=== PATIENT | female | born 1950 | race Caucasian/White ===

== ENCOUNTER 2016-10-29 15:16 | Emergency (ER) | payer OTHER, MEDICARE ==
[~2016-10-29] VITALS: Ht 175.3 cm; Wt 118.1 kg
[~2016-10-29 15:16] MED LIST: ATEN50 PO; DIAZ10TA PO; ECON0.05 EX; FERR324T4 PO; LEVO125T48 PO; LORA1TAB PO; LORT5TAB PO; MEDR2.5T19 PO; METHTAB PO; MEVA40TA PO; MIRA0.5T PO; PRED10PA PO; PREG75 PO; PROT40TA PO; SERT-132 OR; TAB-TAB PO; TRIA.1%T TOP; TUMS500C PO; VITA100018 PO; ZOLP10TA3 PO; [UNRECOGNIZED DRUG - CODE] TOP
[2016-10-29 15:28] VITALS: BP 185/93; PULSE 92; RESP 18; TEMP 98.9; O2SAT 96
--- NOTE | 2016-10-29 15:58 | PD ---
HPI Chief Complaint: Fall Time Seen by Provider: 15:42 Travel History International Travel<30 days: No Contact w/Intl Traveler<30days: No Traveled to known affect area: No History of Present Illness HPI 66-year-old female presents to the emergency room for evaluation of left shoulder pain and headache after falling 2.5 hours prior to arrival. Patient went to sit down but the chair was not behind her and she fell into an island striking the back of her head. She denies loss of consciousness, nausea, vomiting. She denies neck pain. She is not on blood thinners. States her head pain is severe. She took prescribed Neurontin and Lortab without significant relief in symptoms. Shoulder pain is localized to the posterior aspect without radiation. Worse with palpation. She denies paresthesias. PFSH Past Medical History Cancer: No Cardiovascular Problems: No Diabetes: No Diminished Hearing: No Hypertension: Yes Respiratory: No Thyroid Disease: Yes (HYPOTHYROID) ?: Not : 4 Para: 4 Past Surgical History Other Surgery: No Social History Alcohol Use: Yes (occasional) Tobacco Use: No Substance Use: No Allergies-Medications (Allergen,Severity, Reaction): Coded Allergies: No Known Allergies (Verified , 11/03/11) Reported Meds & Prescriptions Reported Meds & Active Scripts Active Reported Zoloft (Sertraline HCl) 100 Mg Tab 100 Mg PO DAILY Protonix (Pantoprazole Sodium) 40 Mg Tab 40 Mg PO BID Zanaflex (Tizanidine HCl) 4 Mg Tab 4 Mg PO HS Allopurinol 100 Mg Tab 100 Mg PO DAILY Mirapex (Pramipexole Dihydrochloride) 1 Mg Tab 1 Mg PO HS Ambien (Zolpidem Tartrate) 10 Mg Tab 10 Mg PO HS PRN Lisinopril 40 Mg Tab 80 Mg PO DAILY Atenolol 50 Mg Tab 50 Mg PO BID Metformin ER (Metformin HCl) 500 Mg Oli 500 Mg PO BID With evening meal Review of Systems Except as stated in HPI: all other systems reviewed are Neg Physical Exam Narrative GENERAL: Well-nourished, obese female in no acute distress. Afebrile. Ambulatory. SKIN: Focused skin assessment warm/dry. No erythema or ecchymosis. HEAD: Normocephalic. EYES: No scleral icterus. No injection or drainage. EARS: Bilateral ear canals are occluded with cerumen. NECK: Supple, trachea midline. No JVD or lymphadenopathy. CARDIOVASCULAR: Regular rate and rhythm without murmurs, gallops, or rubs. RESPIRATORY: Breath sounds equal bilaterally. No accessory muscle use. NEUROLOGICAL: Awake and alert. Cranial nerves II through XII intact. Motor and sensory grossly within normal limits. Five out of 5 muscle strength in all muscle groups. Normal speech. Data Data Last Documented VS Vital Signs Date Time Temp Pulse Resp B/P (MAP) Pulse Ox O2 Delivery O2 Flow Rate FiO2 10/29/16 16:56 166/80 (108) 10/29/16 15:28 98.9 92 18 96 Room Air Orders Orders Ct Brain W/O Iv Contrast(Rout) (10/29/16 ) [facility] Medical Decision Making Medical Screen Exam Complete: Yes Emergency Medical Condition: Yes Medical Record Reviewed: Yes Differential Diagnosis Cephalgia, CVA, ICH, head injury, contusion Narrative Course 66-year-old female presents to the emergency room for evaluation of headache after hitting her head just prior to arrival. Patient fell from standing, thinking there was a chair behind her to sit down on, she struck the back of her head against and a kitchen island. She denies loss of consciousness, nausea , vomiting, and is not on blood thinners. She has a severe headache and is crying in pain. No focal neurological deficits. Bilateral ear canals are occluded with cerumen. No hilton sign or raccoon eyes. CT of the brain is negative for acute abnormality. She also has posterior left shoulder/thoracic back pain from where she struck it against a island. It is tender to palpation. No edema, ecchymosis, or erythema. Left upper extremity is unaffected. No indication for imaging. Patient was reassured and told to follow-up with the primary care physician or return for worsening symptoms. She understands and agrees to plan. Diagnosis Primary Impression: Closed head injury Qualified Codes: S09.90XA - Unspecified injury of head, initial encounter Referrals: Primary Care Physician Additional Instructions: Rest and drink plenty of fluids. Take ibuprofen with food as directed, as needed for pain. Apply ice to the affected area for 20 minutes at a time, as needed for pain and swelling. Follow-up with a primary care physician. Return to the emergency room for worsening symptoms. Disposition: 01 DISCHARGE HOME Condition: Stable Vicky Crawford Oct 29, 2016 15:58
[2016-10-29] MEDS ORDERED: PROT40TA PO (16:01)
[2016-10-29] MEDS ORDERED: TIZA4 PO (16:01)
[2016-10-29] MEDS ORDERED: METF500T4 PO (16:01)
[2016-10-29] MEDS ORDERED: PRAM1 PO (16:01)
[2016-10-29] MEDS ORDERED: ATEN50TA PO (16:01)
[2016-10-29] MEDS ORDERED: LISI40TA PO (16:01)
[2016-10-29] MEDS ORDERED: ZOLO100T PO (16:01)
[2016-10-29] MEDS ORDERED: AMBI10TA PO (16:01)
[2016-10-29] MEDS ORDERED: ALLO100T PO (16:01)
[2016-10-29 16:56] VITALS: BP 166/80
--- NOTE | 2016-10-29 17:06 | RADRPT ---
EXAM DATE/TIME: 10/29/2016 16:50 [facility] COMPARISON: No previous studies available for comparison. INDICATIONS : Trauma, fall. Cephalgia. RADIATION DOSE: 64.49 CTDIvol (mGy) MEDICAL HISTORY : Hypertension. Diabetes mellitus type 2. SURGICAL HISTORY : None. ENCOUNTER: Initial ACUITY: 1 day PAIN SCALE: 5/10 LOCATION: cranial TECHNIQUE: Multiple contiguous axial images were obtained of the head. Using automated exposure control and adj ustment of the mA and/or kV according to patient size, radiation dose was kept as low as reasonably a chievable to obtain optimal diagnostic quality images. DICOM format image data is available electro nically for review and comparison. FINDINGS: CEREBRUM: The ventricles are normal for age. No evidence of midline shift, mass lesion, hemorrhage or acute in farction. No extra-axial fluid collections are seen. POSTERIOR FOSSA: The cerebellum and brainstem are intact. The 4th ventricle is midline. The cerebellopontine angle i s unremarkable. EXTRACRANIAL: The visualized portion of the orbits is intact. SKULL: The calvaria is intact. No evidence of skull fracture. CONCLUSION: 1. No acute intracranial abnormality is identified. Jose Connors MD on October 29, 2016 at 17:01 Board Certified Radiologist. This report was verified electronically.
[2016-10-29 17:20] VITALS: BP 152/79
== END 2016-10-29 17:30 | disposition home or self-care (01) ==
LOC: PHEFT 15:16
DX: S09.90XA Unspecified injury of head, initial encounter (principal); M25.512 Pain in left shoulder; I10 Essential (primary) hypertension; E03.9 Hypothyroidism, unspecified; W18.39XA Other fall on same level, initial encounter
CPT/HCPCS: 70450; 99284

== ENCOUNTER 2017-09-04 20:44 | Inpatient (IN) ==
--- NOTE | 2017-09-04 20:56 | ED ---
HPI General Chief Complaint: Stroke Alert Stated Complaint: Medical Time Seen by Provider: 09/04/17 20:49 Source: EMS Mode of arrival: ambulatory History of Present Illness HPI Narrative: The patient ana in by EMS because of convulsions and decreased responsiveness to commands. onset of symptoms of 25 min prior to arrival. The symptoms are still present . There is no headache. The patient did not have similar episodes in the past. As per EMS report the patient was seen earlier at another facility for kidney stones had Rocephin IV and morphine and was subsequently discharged. She was at dinner with her when she started having tremors and convulsions not responding to questions. Paramedics report that she had a brief transient episode that she responded to them that she is not hurting anywhere however she still has shaking of the upper extremities facial tic and transient responses to questions. Onset (ago): minute(s) (25 ago) Timing confirmed by: spouse Location: other (Upper extremities and facial muscles) History of same: No Severity: severe Relieving factors: none Context: sudden onset On Anticoagulants: No Related Data Home Medications Medication Instructions Recorded Confirmed carvedilol [Coreg] mg PO 09/04/17 gabapentin 09/04/17 hydrocodone-acetaminophen tab PO Q4-6H PRN 09/04/17 sertraline [Zoloft] mg PO 09/04/17 Allergies Allergy/AdvReac Type Severity Reaction Status Date / Time promethazine [From Phenergan] Allergy Anaphylaxis Verified 09/04/17 20:52 Review of Systems ROS Unobtainable unobtainable due to mental condition (denies headache) [facility] Medical History Medical History Diabetes (Acute) Fibromyalgia (Acute) HTN (hypertension) (Acute) Kidney stone (Acute) Patient is Shinto (Acute) Refusal of blood transfusions as patient is Shinto (Acute) Surgical History Surgical History H/O cervical spine surgery (Acute) History of back surgery (Acute) History of lithotripsy (Acute) Family History Family History Father Stroke Mother Stroke Social History Social History Substance History: No History of Abuse Smoking Status: Former smoker Tobacco Type: Cigarettes Years Smoked: 12 Smoking End Date: when she was 29 How Often Do You Have a Drink Containing Alcohol: Monthly or less Recent Travel in [facility] within the Last 8 Weeks: No Recent Out of Country Travel within the Last 8 Weeks: No Exam Narrative Exam Narrative: GENERAL: Patient in distress not following commands with tremors of upper extremities and facial muscles. SKIN: Focused skin assessment warm/dry. HEAD: Atraumatic. Normocephalic. EYES: Pupils equal and round. No scleral icterus. No injection or drainage. ENT: No nasal bleeding or discharge. Mucous membranes pink and moist. NECK: Trachea midline. No JVD. CARDIOVASCULAR: Regular rate and rhythm. No murmur appreciated. RESPIRATORY: No accessory muscle use. Clear to auscultation. Breath sounds equal bilaterally. GASTROINTESTINAL: Abdomen soft, non-tender, nondistended. Hepatic and splenic margins not palpable. MUSCULOSKELETAL: No obvious deformities. No clubbing. No cyanosis. No edema. PSYCHIATRIC: Appropriate mood and affect; insight and judgment normal. Neuro General: awake Cranial Nerves: PERRL and EOM intact bilaterally Speech: expressive aphasia Motor: strength 5/5 throughout, no pronator drift, tremor (Upper extremities facial muscles LT MORE THAN RT), no pronator drift noted and strength normal Sensory Exam: other (withdrawls to painfull stimuli) DTR's: Rt Brachioradialis: 4+, Lt Brachioradialis: 4+, Rt Patellar: 4+ and Lt Patellar: 4+ Plantar Reflexes: Downgoing: bilateral Pupils: Normal pupillary reactivity/response: bilateral Other: Unable to obtain cranial nerve evaluation. Patient does not follow commands. Appears that she might have an expressive aphasia at times however she does respond to questions. Moves all extremities upper and lower without any signs of deficits. Bilateral lower extremities with drift of 8 seconds. However I feel like this mostly because the patient does not follow commands. Does not appear to have any focal deficits at this time. Course Reevaluation(s) Reevaluation #3: at bedside provided us with CT reading from previous facility. Apparently patient has an obstructing ureteral calculus approximately 13 mm on the left UPJ with mild left hydronephrosis. This is official reading from previous facility on a CT abdomen and pelvis without contrast that was obtained on the at [facility] Time: 22:45 Consultations Consultation #1: Patient presented to neurology on-call Dr. Sanders. Based on the fact that the patient appears to be having focal seizures with tremors and not specific symptoms of CVA with focal deficits she is not a TPA candidate. We are awaiting results. Current recommendation is admit to the ICU. Time: 21:00 Initial Documented Vital Signs Temperature 103.4 F H 09/04/17 20:45 Pulse Rate 132 H 09/04/17 20:45 Respiratory Rate 20 09/04/17 20:45 Blood Pressure 156/92 H 09/04/17 20:45 Pulse Oximetry 98 09/04/17 20:45 Last Documented Vital Signs Temperature 99.7 F H 09/05/17 03:56 Pulse Rate 103 H 09/05/17 07:40 Respiratory Rate 18 09/05/17 07:40 Blood Pressure 157/71 H 09/05/17 07:40 Pulse Oximetry 96 09/05/17 07:40 Quality Measure Queries Stroke Last date observed well: 09/04/17 Last time observed well: 19:30 Symptom Onset Unknown: Yes Comment Thrombolytic Contraindications: Pt appears to be having focal seizure, Medical Decision Making MDM Narrative Medical decision making narrative: Patient initially came as a stroke alert however imaging was unremarkable due to the fact the child altered mental status and met sepsis criteria with temperature lactic acidosis and white count we cover her prophylactically for possible meningitis however after her arrived it appears that she had an infected kidney stone that was scheduled to be removed this coming week and the patient was seen and evaluated at another facility earlier however she became septic within a few hours and resolving to toxic metabolic encephalopathy on arrival here. She was not a candidate for TPA presentation was discussed with neurology and she was admitted to the surgical ICU for urologic consultation and removal of the stone possible nephrostomy tubes. ICU attending was informed of the patient 90. Patient improved markedly after she received fluids with resolution of her neurologic deficits. Unable to obtain NIH score in arrival patient was not following commands. Lab Data Lab results reviewed: Yes I reviewed the patient's lab results. Result diagrams: 09/04/17 20:50 09/05/17 07:05 Lab Results 09/04/17 09/04/17 09/04/17 Range/Units 20:50 20:50 20:50 WBC (4.0-11.0) th/mm3 RBC (4.00-5.30) mil/mm3 Hgb (11.6-15.3) gm/dL POC Hgb (Calc) 10.9 L (11.6-15.3) g/dL Hct (35.0-46.0) % POC Hct 32.0 L (35-46.0) % MCV (80.0-100.0) fL MCH (27.0-34.0) pg MCHC (32.0-36.0) % RDW (11.6-17.2) % Plt Count (150-450) th/mm3 MPV (7.0-11.0) fL Neut % (Auto) (16.0-70.0) % Lymph % (Auto) (9.0-44.0) % [place] % (Auto) (0.0-8.0) % Eos % (Auto) (0.0-4.0) % Baso % (Auto) (0.0-2.0) % Neut # (Auto) (1.8-7.7) th/mm3 Lymph # (Auto) (1.0-4.8) th/mm3 [place] # (Auto) (0.0-0.9) th/mm3 Eos # (Auto) (0.0-0.4) th/mm3 Baso # (Auto) (0.0-0.2) th/mm3 WBC Differential Differential Comment PT 11.0 (9.8-11.6) sec INR 1.1 Ratio APTT 21.7 L (24.3-30.1) sec POC Sodium 142 (137-144) mmol/L Sodium 143 (136-145) meq/L POC Potassium 4.3 (3.6-5.0) mmol/L Potassium 4.2 (3.5-5.1) meq/L POC Chloride 106 (102-111) mmol/L Chloride 109 H (98-107) meq/L Carbon Dioxide 23.3 (21.0-32.0) meq/L Anion Gap 11 (5-15) meq/L POC BUN 20 (5-21) mg/dL BUN 19 H (7-18) mg/dL Creatinine 1.19 H (0.50-1.00) mg/dL POC Creatinine 1.0 (0.6-1.3) mg/dL Estimated GFR 45 L (>89) mL/min POC Glucose 134 H (68-110) mg/dL Random Glucose 132 H (74-106) mg/dL Lactic Acid (0.4-2.0) mmol/L Calcium 8.8 (8.5-10.1) mg/dL Total Creatine Kinase 67 (26-192) U/L Troponin I Less than 0.02 L (0.02-0.05) ng/mL Urine Color (Yellw/Straw) Urine Clarity (Clear) Urine pH (5.0-8.5) Ur Specific [place] (1.002-1.035) Urine Protein (Neg-Trace) mg/dL Urine Glucose (UA) (Negative) mg/dL Urine Ketones (Negative) mg/dL Urine Occult Blood (Negative) Urine Nitrate (Negative) Urine Bilirubin (Negative) Urine Urobilinogen (Less than 2) mg/dL Ur Leukocyte Esterase (Negative) Urine RBC (0-3) /hpf Urine WBC (0-5) /hpf Urine WBC Clumps (None) Ur Squamous Epith Cells (0-5) /hpf Urine Bacteria (None) /hpf Hyaline Casts (0-3) /lpf Micro UA Comment Urine Culture Comments Blood Type Blood Type Recheck Antibody Screen 09/04/17 09/04/17 09/04/17 Range/Units 20:50 20:54 21:55 WBC 11.9 H (4.0-11.0) th/mm3 RBC 3.91 L (4.00-5.30) mil/mm3 Hgb 11.3 L (11.6-15.3) gm/dL POC Hgb (Calc) (11.6-15.3) g/dL Hct 34.1 L (35.0-46.0) % POC Hct (35-46.0) % MCV 87.2 (80.0-100.0) fL MCH 28.9 (27.0-34.0) pg MCHC 33.1 (32.0-36.0) % RDW 15.6 (11.6-17.2) % Plt Count 229 (150-450) th/mm3 MPV 6.7 L (7.0-11.0) fL Neut % (Auto) 85.9 H (16.0-70.0) % Lymph % (Auto) 6.3 L (9.0-44.0) % [place] % (Auto) 6.8 (0.0-8.0) % Eos % (Auto) 0.6 (0.0-4.0) % Baso % (Auto) 0.4 (0.0-2.0) % Neut # (Auto) 10.2 H (1.8-7.7) th/mm3 Lymph # (Auto) 0.7 L (1.0-4.8) th/mm3 [place] # (Auto) 0.8 (0.0-0.9) th/mm3 Eos # (Auto) 0.1 (0.0-0.4) th/mm3 Baso # (Auto) 0.0 (0.0-0.2) th/mm3 WBC Differential . Differential Comment Auto diff final PT (9.8-11.6) sec INR Ratio APTT (24.3-30.1) sec POC Sodium (137-144) mmol/L Sodium (136-145) meq/L POC Potassium (3.6-5.0) mmol/L Potassium (3.5-5.1) meq/L POC Chloride (102-111) mmol/L Chloride (98-107) meq/L Carbon Dioxide (21.0-32.0) meq/L Anion Gap (5-15) meq/L POC BUN (5-21) mg/dL BUN (7-18) mg/dL Creatinine (0.50-1.00) mg/dL POC Creatinine (0.6-1.3) mg/dL Estimated GFR (>89) mL/min POC Glucose 146 H (68-110) mg/dL Random Glucose (74-106) mg/dL Lactic Acid (0.4-2.0) mmol/L Calcium (8.5-10.1) mg/dL Total Creatine Kinase (26-192) U/L Troponin I (0.02-0.05) ng/mL Urine Color Yellow (Yellw/Straw) Urine Clarity Cloudy H (Clear) Urine pH 5.0 (5.0-8.5) Ur Specific [place] 1.048 H (1.002-1.035) Urine Protein 100 H (Neg-Trace) mg/dL Urine Glucose (UA) Negative (Negative) mg/dL Urine Ketones Negative (Negative) mg/dL Urine Occult Blood Large H (Negative) Urine Nitrate Negative (Negative) Urine Bilirubin Negative (Negative) Urine Urobilinogen Less than 2 (Less than 2) mg/dL Ur Leukocyte Esterase Large H (Negative) Urine RBC 21 H (0-3) /hpf Urine WBC 104 H (0-5) /hpf Urine WBC Clumps Occasional H (None) Ur Squamous Epith Cells 1 (0-5) /hpf Urine Bacteria Occasional H (None) /hpf Hyaline Casts 2 (0-3) /lpf Micro UA Comment Cath-culture ind Urine Culture Comments Cath-cult indicated Blood Type Blood Type Recheck Antibody Screen 09/04/17 09/05/17 09/05/17 Range/Units 21:55 03:10 07:05 WBC (4.0-11.0) th/mm3 RBC (4.00-5.30) mil/mm3 Hgb (11.6-15.3) gm/dL POC Hgb (Calc) (11.6-15.3) g/dL Hct (35.0-46.0) % POC Hct (35-46.0) % MCV (80.0-100.0) fL MCH (27.0-34.0) pg MCHC (32.0-36.0) % RDW (11.6-17.2) % Plt Count (150-450) th/mm3 MPV (7.0-11.0) fL Neut % (Auto) (16.0-70.0) % Lymph % (Auto) (9.0-44.0) % [place] % (Auto) (0.0-8.0) % Eos % (Auto) (0.0-4.0) % Baso % (Auto) (0.0-2.0) % Neut # (Auto) (1.8-7.7) th/mm3 Lymph # (Auto) (1.0-4.8) th/mm3 [place] # (Auto) (0.0-0.9) th/mm3 Eos # (Auto) (0.0-0.4) th/mm3 Baso # (Auto) (0.0-0.2) th/mm3 WBC Differential Differential Comment PT (9.8-11.6) sec INR Ratio APTT (24.3-30.1) sec POC Sodium (137-144) mmol/L Sodium 144 (136-145) meq/L POC Potassium (3.6-5.0) mmol/L Potassium 4.2 (3.5-5.1) meq/L POC Chloride (102-111) mmol/L Chloride 111 H (98-107) meq/L Carbon Dioxide 25.5 (21.0-32.0) meq/L Anion Gap 8 (5-15) meq/L POC BUN (5-21) mg/dL BUN 18 (7-18) mg/dL Creatinine 0.95 (0.50-1.00) mg/dL POC Creatinine (0.6-1.3) mg/dL Estimated GFR 58 L (>89) mL/min POC Glucose (68-110) mg/dL Random Glucose 101 (74-106) mg/dL Lactic Acid 1.9 (0.4-2.0) mmol/L Calcium 8.8 (8.5-10.1) mg/dL Total Creatine Kinase (26-192) U/L Troponin I (0.02-0.05) ng/mL Urine Color (Yellw/Straw) Urine Clarity (Clear) Urine pH (5.0-8.5) Ur Specific [place] (1.002-1.035) Urine Protein (Neg-Trace) mg/dL Urine Glucose (UA) (Negative) mg/dL Urine Ketones (Negative) mg/dL Urine Occult Blood (Negative) Urine Nitrate (Negative) Urine Bilirubin (Negative) Urine Urobilinogen (Less than 2) mg/dL Ur Leukocyte Esterase (Negative) Urine RBC (0-3) /hpf Urine WBC (0-5) /hpf Urine WBC Clumps (None) Ur Squamous Epith Cells (0-5) /hpf Urine Bacteria (None) /hpf Hyaline Casts (0-3) /lpf Micro UA Comment Urine Culture Comments Blood Type O Positive Blood Type Recheck Required Antibody Screen Negative 09/05/17 Range/Units 07:05 WBC (4.0-11.0) th/mm3 RBC (4.00-5.30) mil/mm3 Hgb (11.6-15.3) gm/dL POC Hgb (Calc) (11.6-15.3) g/dL Hct (35.0-46.0) % POC Hct (35-46.0) % MCV (80.0-100.0) fL MCH (27.0-34.0) pg MCHC (32.0-36.0) % RDW (11.6-17.2) % Plt Count (150-450) th/mm3 MPV (7.0-11.0) fL Neut % (Auto) (16.0-70.0) % Lymph % (Auto) (9.0-44.0) % [place] % (Auto) (0.0-8.0) % Eos % (Auto) (0.0-4.0) % Baso % (Auto) (0.0-2.0) % Neut # (Auto) (1.8-7.7) th/mm3 Lymph # (Auto) (1.0-4.8) th/mm3 [place] # (Auto) (0.0-0.9) th/mm3 Eos # (Auto) (0.0-0.4) th/mm3 Baso # (Auto) (0.0-0.2) th/mm3 WBC Differential Differential Comment PT (9.8-11.6) sec INR Ratio APTT (24.3-30.1) sec POC Sodium (137-144) mmol/L Sodium (136-145) meq/L POC Potassium (3.6-5.0) mmol/L Potassium (3.5-5.1) meq/L POC Chloride (102-111) mmol/L Chloride (98-107) meq/L Carbon Dioxide (21.0-32.0) meq/L Anion Gap (5-15) meq/L POC BUN (5-21) mg/dL BUN (7-18) mg/dL Creatinine (0.50-1.00) mg/dL POC Creatinine (0.6-1.3) mg/dL Estimated GFR (>89) mL/min POC Glucose (68-110) mg/dL Random Glucose (74-106) mg/dL Lactic Acid 1.9 (0.4-2.0) mmol/L Calcium (8.5-10.1) mg/dL Total Creatine Kinase (26-192) U/L Troponin I (0.02-0.05) ng/mL Urine Color (Yellw/Straw) Urine Clarity (Clear) Urine pH (5.0-8.5) Ur Specific [place] (1.002-1.035) Urine Protein (Neg-Trace) mg/dL Urine Glucose (UA) (Negative) mg/dL Urine Ketones (Negative) mg/dL Urine Occult Blood (Negative) Urine Nitrate (Negative) Urine Bilirubin (Negative) Urine Urobilinogen (Less than 2) mg/dL Ur Leukocyte Esterase (Negative) Urine RBC (0-3) /hpf Urine WBC (0-5) /hpf Urine WBC Clumps (None) Ur Squamous Epith Cells (0-5) /hpf Urine Bacteria (None) /hpf Hyaline Casts (0-3) /lpf Micro UA Comment Urine Culture Comments Blood Type Blood Type Recheck Antibody Screen Imaging Data Radiologist's impression: Head CT 09/04/17 20:49 CONCLUSION: 1. No acute findings in the brain. Report was called to the ordering ER physician Dr. Jarrett at 9:10 PM ] Head CTA 09/04/17 20:49 CONCLUSION: 1. No evidence of vessel truncation or aneurysm. Neck CTA 09/04/17 20:49 CONCLUSION: 1. Negative CTA carotids. Chest X-Ray 09/04/17 20:50 CONCLUSION: No focal infiltrates seen. Elevation of the right hemidiaphragm. ECG Data EKG Prior to Arrival: No Attestation: I personally reviewed and interpreted this ECG as follows: Interpretation: EKG shows sinus tachycardia with heart rate of 125 bpm, no ST elevation or depression, nonspecific ST-T wave abnormalities. Normal axis, no significant T-wave inversions. MS and QTc intervals within normal limits no signs of acute ischemia Discharge Plan Discharge Disposition Patient Disposition: 30 Still Patient Discharge Condition Condition: Critical Discharge Details Diagnosis: Toxic metabolic encephalopathy, Transient cerebral ischemia, Acute UTI, Hydronephrosis with ureteral calculus Physicians Team ED Provider: Brad Jarrett Primary Care Provider: Primary Care Physici,Jessi Attending Provider: Elo Law Other Providers: Elo Law ; Breezy Maddox Discharge Interventions Interventions: Vital Signs Last Done: 09/05/17 05:00 Status ED Status: Admitted Patient
[2017-09-04] MEDS ORDERED: Sod Chloride 0.9% Inj 1,000 ML IV.CONT SCH (21:00)
--- NOTE | 2017-09-04 21:14 | CT ---
EXAM DATE: 09/04/2017 9:07 PM EDT AGE/SEX: 67 years / Female INDICATIONS: Stroke Alert. Seizure like activity. CLINICAL DATA: This is the patient's initial encounter. Patient reports that signs and symptoms have been present for 1 day and indicates a pain score of Nonresponsive. MEDICAL/SURGICAL HISTORY: Non-responsive. Arthroscopy. RADIATION DOSE: 43.70 CTDI (mGy) COMPARISON: [facility], CT BRAIN W/O CONTRAST, 10/29/2016. . TECHNIQUE: CT of the head without contrast. Using automated exposure control and adjustment of the mA and/or kV according to patient size, radiation dose was kept as low as reasonably achievable to ob tain optimal diagnostic quality images. DICOM format image data is available electronically for revi ew and comparison. FINDINGS: Cerebrum: The ventricles are normal for age. No evidence of midline shift, mass lesion, hemorrhage or acute infarction. No extraaxial fluid collections are seen. Physiologic calcification right basal ganglia stable from prior. Posterior Fossa: The cerebellum and brainstem are intact. The 4th ventricle is midline. The cerebe llopontine angle is unremarkable. Extracranial: The visualized portion of the orbits is intact. Skull: The calvaria is intact. No evidence of skull fracture. CONCLUSION: 1. No acute findings in the brain. Report was called to the ordering ER physician Dr. Jarrett at 9:10 PM ] Electronically signed by: Tan Condon MD 09/04/2017 9:13 PM EDT
[2017-09-04 21:17] LABS: Baso % (Auto) 0.4 % (0.0-2.0); Eos # (Auto) 0.1 th/mm3 (0.0-0.4); Eos % (Auto) 0.6 % (0.0-4.0); Hematocrit 34.1 % (35.0-46.0); Hemoglobin 11.3 gm/dL (11.6-15.3); Lymph # (Auto) 0.7 th/mm3 (1.0-4.8); Lymph % (Auto) 6.3 % (9.0-44.0); Mean Corpuscular HGB Conc 33.1 % (32.0-36.0); Mean Corpuscular Hemoglobin 28.9 pg (27.0-34.0); Mean Corpuscular Volume 87.2 fL (80.0-100.0); Mean Platelet Volume 6.7 fL (7.0-11.0); Mono # (Auto) 0.8 th/mm3 (0.0-0.9); Mono % (Auto) 6.8 % (0.0-8.0); Neut # (Auto) 10.2 th/mm3 (1.8-7.7); Neut % (Auto) 85.9 % (16.0-70.0); Platelet Count 229 th/mm3 (150-450); Red Blood Count 3.91 mil/mm3 (4.00-5.30); Red Cell Distribution Width 15.6 % (11.6-17.2); White Blood Count 11.9 th/mm3 (4.0-11.0)
[2017-09-04 21:32] LABS: Activated Partial Thrombo Time 21.7 sec (24.3-30.1); INR 1.1 Ratio
[2017-09-04 21:36] LABS: Anion Gap 11 meq/L (5-15); Blood Urea Nitrogen 19 mg/dL (7-18); Calcium 8.8 mg/dL (8.5-10.1); Carbon Dioxide 23.3 meq/L (21.0-32.0); Chloride 109 meq/L (98-107); Glomerular Filtration Rate 45 mL/min (>89); Glucose,Random 132 mg/dL (74-106); Potassium 4.2 meq/L (3.5-5.1); Sodium 143 meq/L (136-145)
[2017-09-04] MEDS ORDERED: Acetaminophen 650 MG Supp RECTAL ONE (21:36)
[2017-09-04 21:41] LABS: Creatine Kinase 67 U/L (26-192)
--- NOTE | 2017-09-04 21:47 | CT ---
EXAM DATE: 09/04/2017 9:40 PM EDT AGE/SEX: 67 years / Female INDICATIONS: Stroke Alert. Seizure like activity. CLINICAL DATA: This is the patient's initial encounter. Patient reports that signs and symptoms have been present for 1 day and indicates a pain score of Nonresponsive. MEDICAL/SURGICAL HISTORY: Non-responsive. Non-responsive. RADIATION DOSE: 28.78 CTDI (mGy) COMPARISON: No prior exams available for comparison. TECHNIQUE: Volumetric scanning was performed using a multi-row detector CT scanner during bolus infu paty of 100 ml Visipaque 320 (iodixanol) nonionic water-soluble contrast as a single exam dose. Th e data was post processed with a variety of visualization algorithms including full volume maximum in tensity projection, multi-planar sliding thin slab reformation, curved planar reformation, and surfac e rendering techniques. Using automated exposure control and adjustment of the mA and/or kV accordin g to patient size, radiation dose was kept as low as reasonably achievable to obtain optimal diagnost ic quality images. DICOM format image data is available electronically for review and comparison. FINDINGS: There is excellent visualization of the major intracranial arteries out to the second-order branch ve ssels. There is no evidence for aneurysm, vessel truncation or stenosis, and no evidence for vascula r malformation. Flow seen in the anterior communicating artery. Left posterior cerebral artery arises from the anterior circulation. CONCLUSION: 1. No evidence of vessel truncation or aneurysm. Electronically signed by: Tan Condon MD 09/04/2017 9:45 PM EDT
[2017-09-04] MEDS ORDERED: Acyclovir Inj 1,050 MG in Sodium Chlor 0.9% Inj 150 ML IV.SIG SCH (22:00)
--- NOTE | 2017-09-04 22:11 | CT ---
EXAM DATE: 09/04/2017 9:59 PM EDT AGE/SEX: 67 years / Female INDICATIONS: Stroke Alert. Seizure like activity. CLINICAL DATA: This is the patient's initial encounter. Patient reports that signs and symptoms have been present for 1 day and indicates a pain score of Nonresponsive. MEDICAL/SURGICAL HISTORY: Non-responsive. Non-responsive. RADIATION DOSE: 28.78 CTDI (mGy) ; Combined studies COMPARISON: No prior exams available for comparison. TECHNIQUE: Volumetric scanning was performed using a multirow detector CT scanner during bolus infus ion of 100 ml Visipaque 320 (iodixanol) nonionic water-soluble contrast as a cumulative dose for mul tiple exams. The data was postprocessed with a variety of visualization algorithms including full-v olume maximum intensity projection, multiplanar sliding thin-slab reformation, curved-planar reformat ion, and surface-rendering techniques. Using automated exposure control and adjustment of the mA and /or kV according to patient size, radiation dose was kept as low as reasonably achievable to obtain o ptimal diagnostic quality images. DICOM format image data is available electronically for review and comparison. FINDINGS: Aortic Arch: There is a three-vessel origin of the great vessels from the aorta. No evidence of ost ial narrowing Right Carotid: The common carotid artery is intact. The carotid bulb has a normal configuration wit hout ulceration or narrowing. The internal carotid artery lumen is smooth without stenosis. The ext ernal carotid artery is intact. Left Carotid: The common carotid artery is intact. The carotid bulb has a normal configuration with out ulceration or narrowing. The internal carotid artery lumen is smooth without stenosis. The exte rnal carotid artery is intact. Vertebrals: The vertebral arteries have a symmetric diameter. No stenotic lesions are seen. Elevated flow velocities and ICA/CCA ratios have been found to correlate with increased degrees of ve ssel stenosis, calculated as percentage of diameter relative to a normal segment of distal ICA/CCA. CONCLUSION: 1. Negative CTA carotids. Electronically signed by: Tan Condon MD 09/04/2017 10:10 PM EDT
[2017-09-04 22:29] LABS: Bacteria,Urine Occasional /hpf; Bilirubin,Urine Negative (Negative); Clarity,Urine Cloudy (Clear); Color,Urine Yellow (Yellw/Straw); Glucose,Urine (UA) Negative (Negative); Hyaline Casts,Urine 2 /lpf (0-3); Leukocyte Esterase,Urine Large (Negative); Nitrite,Urine Negative (Negative); Specific Gravity,Urine 1.048 (1.002-1.035); Squamous Epithelial Cell,Urine 1 /hpf (0-5)
--- NOTE | 2017-09-04 22:31 | XR ---
EXAM DATE: 09/04/2017 10:18 PM EDT AGE/SEX: 67 years / Female INDICATIONS: Stroke alert. CLINICAL DATA: This is the patient's initial encounter. Patient reports that signs and symptoms have been present for 1 day and indicates a pain score of Nonresponsive. MEDICAL/SURGICAL HISTORY: Non-responsive. Non-responsive. COMPARISON: [facility], CHEST SINGLE AP, 11/03/2011. . FINDINGS: Frontal view of the chest demonstrates moderate elevation of the right hemidiaphragm which is a new f inding when compared to 2012. The heart is moderately enlarged. There is indistinctness and engorgeme nt of the central bronchopulmonary markings. Both hemidiaphragms remain well delineated. No evidence of mediastinal shift. No focal areas of consolidation. CONCLUSION: No focal infiltrates seen. Elevation of the right hemidiaphragm. Electronically signed by: Tan Condon MD 09/04/2017 10:30 PM EDT
[2017-09-04] MEDS ORDERED: Vancomycin Consult Pharmacy 1 EACH OTHER SCH (23:00)
[2017-09-04] MEDS: NEED HT OTHER SCH (23:44)
--- NOTE | 2017-09-05 00:12 | P.HPCC ---
History of Present Illness Service: Critical care medicine Primary Care Physician: No Primary Care Physician History of Present Illness: 67-year-old female with past medical history of hypertension, diabetes , fibromyalgia, recurrent kidney stones status post prior lithotripsy by Dr. Grande. She began having left flank pain about 2 weeks ago. She followed up with Dr. Grande and had CT demonstrating 13 mm left stone. She was scheduled for laser fragmentation on 09/02/17 but her states the procedure was postponed because of pyuria. She had been told to take preoperative antibiotics but she had not started them when she was supposed to. She was told to continue abx. On 09/04 13:30 she developed more severe L flank pain so she presented to [facility] where CT scan demonstrated mild left hydronephrosis, 13 mm obstructing calculus at left UPJ. She was afebrile. White blood cell count was 8.7. BUN and creatinine were 16 and 0.79 respectively. Lactic acid 1.5. Urinalysis showed 2+ leukocyte esterase, 5 white blood cells, 9 RBCs, 4+ bacteria, nitrite negative. She received a dose of antibiotics which sounds like it was Rocephin. She then went to eat dinner with her in [place] and was sitting up in a montalvo when she began shaking with arms in flexion and though did not appear to completely lose consciousness, she was minimally responsive. She was also lethargic and not able to provide significant history on arrival. Stroke alert was called and she had CT brain that was negative. CTA brain and carotids were negative. ED physician discussed with neurologist who indicated she is not a TPA candidate but should be admitted to [facility]. Now she is much more responsive and it is apparent she has no focal deficit. She is febrile to 102.3. White blood cell count is 11.9. Catheterized urine specimen consistent with UTI. Creatinine 1.19. [facility] - History History Provided By: Family Member - Medical History Medical History: Medical History (Last Reviewed 09/05/17 @ 08:16 by Brad Jarrett DO) Diabetes Fibromyalgia HTN (hypertension) Kidney stone Patient is [employer] Refusal of blood transfusions as patient is [employer] - Surgical History Surgical History: Surgical History (Last Updated 09/05/17 @ 05:44 by Elo Law MD) H/O cervical spine surgery History of back surgery History of lithotripsy - Family History Family History: Family History (Last Updated 09/05/17 @ 05:44 by Elo Law MD) Father Stroke Mother Stroke - Tobacco History Tobacco Use In Past 30 Days: No Smoking Status: Former smoker Tobacco Type: Cigarettes Years Smoked: 12 Smoking End Date: when she was 29 - Alcohol History How Often Do You Have a Drink Containing Alcohol: Monthly or less - Substance Use History Substance History: No History of Abuse - Travel History Recent Travel in the [place] Within the Last 8 Weeks: No Recent Travel Out of the Country Within the Last 8 Weeks: No - Immunization History Tetanus Immunization: Unsure Hx Influenza Vaccine This Season: No Medications and Allergies Active Medications: Active Medications Sodium Chloride (Ns Inj) 1,000 mls @ 70 mls/hr IV.CONT .[id number] REKHA Stop: 09/05/17 11:17 Pharmacy Profile Note (Vancomycin Consult Pharmacy) 0 mls @ 0 mls/hr OTHER UNSCH REKHA Meropenem 1,000 mg/ Sodium (Chloride) 100 mls @ 200 mls/hr IV.SIG Q8H REKHA Vancomycin HCl 2,500 mg/ (Sodium Chloride) 525 mls @ 262.5 mls/hr IV.SIG ONCE ONE Stop: 09/05/17 02:59 Acetaminophen (Ofirmev Inj) 1,000 mg in 100 mls @ 400 mls/hr IV.SIG ONCE ONE Stop: 09/05/17 00:16 Sodium Chloride (Ns Flush) 2 ml IV.FLUSH PRN PRN PRN Reason: FLUSH AFTER USING IV ACCESS Allergies Allergy/AdvReac Type Severity Reaction Status Date / Time promethazine [From Phenergan] Allergy Anaphylaxis Verified 09/04/17 20:52 Home Medications Medication Instructions Recorded Confirmed Type gabapentin 300 mg PO TID 09/04/17 09/05/17 History benazepril 80 mg PO DAILY 09/05/17 09/05/17 History carvedilol [Coreg] 25 mg PO BID 09/05/17 09/05/17 History furosemide [Lasix] 40 mg PO BID 09/05/17 09/05/17 History hydrocodone-acetaminophen [[place]] 1 tab PO Q8HR PRN 09/05/17 09/05/17 History levothyroxine 250 mcg PO DAILY 09/05/17 09/05/17 History magnesium 400 mg PO DAILY 09/05/17 09/05/17 History pramipexole [Mirapex] 1 mg PO DAILY 09/05/17 09/05/17 History sertraline [Zoloft] 200 mg PO DAILY 09/05/17 09/05/17 History zolpidem [Ambien] 10 mg DAILY 09/05/17 09/05/17 History Results - Labs CBC & Chem 7: 09/05/17 16:45 09/05/17 07:05 Labs: Short CBC 09/04/17 Range/Units 20:50 WBC 11.9 H (4.0-11.0) th/mm3 Hgb 11.3 L (11.6-15.3) gm/dL Hct 34.1 L (35.0-46.0) % Plt Count 229 (150-450) th/mm3 BMP 09/04/17 20:50 Sodium 143 Potassium 4.2 Chloride 109 H Carbon Dioxide 23.3 BUN 19 H Creatinine 1.19 H Calcium 8.8 Cardiac Enzymes 09/04/17 Range/Units 20:50 Total Creatine Kinase 67 (26-192) U/L Troponin I Less than 0.02 L (0.02-0.05) ng/mL Urine 09/04/17 Range/Units 21:55 Urine Color Yellow (Yellw/Straw) Urine Clarity Cloudy H (Clear) Urine pH 5.0 (5.0-8.5) Ur Specific [place] 1.048 H (1.002-1.035) Urine Protein 100 H (Neg-Trace) mg/dL Urine Glucose (UA) Negative (Negative) mg/dL - Imaging Impressions Head CT 09/04/17 20:49 CONCLUSION: 1. No acute findings in the brain. Report was called to the ordering ER physician Dr. Jarrett at 9:10 PM ] Head CTA 09/04/17 20:49 CONCLUSION: 1. No evidence of vessel truncation or aneurysm. Neck CTA 09/04/17 20:49 CONCLUSION: 1. Negative CTA carotids. Chest X-Ray 09/04/17 20:50 CONCLUSION: No focal infiltrates seen. Elevation of the right hemidiaphragm. Exam Vital signs: Vital Signs 09/04/17 20:45 09/04/17 20:47 07/20/18 20:50 Temperature 103.4 F H Pulse Rate 132 H 124 H Respiratory Rate 20 16 Blood Pressure 156/92 H 156/92 H Pulse Oximetry 98 98 98 09/04/17 20:55 09/04/17 21:00 09/04/17 21:30 Temperature Pulse Rate 122 H 123 H Respiratory Rate 20 18 Blood Pressure 181/97 H 211/95 H Pulse Oximetry 98 98 98 09/04/17 22:45 09/04/17 23:25 Temperature 102.4 F H Pulse Rate 123 H Respiratory Rate 18 Blood Pressure 157/74 H Pulse Oximetry 98 Intake & Output 09/04/17 09/04/17 09/05/17 06:59 18:59 06:59 Weight 114.62 kg Narrative: GENERAL: Overweight female who is laying in ED stretcher, lethargic but arouses to voice and answer some questions. She is confused. SKIN: Warm and dry. HEAD: Atraumatic. Normocephalic. EYES: Pupils equal and round, 3 mm and reactive bilaterally.. No scleral icterus. No injection or drainage. ENT: No nasal bleeding or discharge. Mucous membranes dry. No meningismus NECK: Trachea midline. No JVD. CARDIOVASCULAR: Tachycardic, sinus tach on monitor with rate in the 130s.. No murmurs rubs or gallops. RESPIRATORY: Tachypneic but no accessory muscle use.. Clear to auscultation. Breath sounds equal bilaterally. On 2 L nasal cannula. GASTROINTESTINAL: Abdomen soft, , nondistended. She has left flank tenderness. No rebound or guarding. MUSCULOSKELETAL: Extremities without clubbing, cyanosis, edema. No obvious deformities. NEUROLOGICAL: Lethargic but arouses to voice and is oriented to self, place, circumstance. At times confused. No obvious cranial nerve deficits, no facial droop. Normal tongue protrusion.. No pronator drift. Strength 5 out of 5 biceps/triceps/hand intrinsics/hip flexors/ankle plantar and dorsiflexion. No clonus. Septic Shock Reassessment Septic shock perfusion: reassessment completed Caprini VTE Risk Assessment Caprini VTE Risk Assessment: Moderate/High Risk (score >= 2) VTE Pharmacological Exception Reason: Documented (Likely urologic intervention today) Caprini Risk Assessment Model: Point Value = 1 Point Value = 2 Point Value = 3 Point Value = 5 Age 41-60 Minor surgery BMI > 25 kg/m2 Swollen legs Varicose veins or History of unexplained or recurrent spontaneous Oral contraceptives or hormone replacement Sepsis (< 1 month) Serious lung disease, including pneumonia (< 1 month) Abnormal pulmonary function Acute myocardial infarction Congestive heart failure (< 1 month) History of inflammatory bowel disease Medical patient at bed rest Age 61-74 Arthroscopic surgery Major open surgery (> 45 min) Laparoscopic surgery (> 45 min) Malignancy Confined to bed (> 72 hours) Immobilizing plaster cast Central venous access Age >= 75 History of VTE Family history of VTE Factor V Leiden Prothrombin [id number] Lupus anticoagulant Anticardiolipin antibodies Elevated serum homocysteine Heparin-induced thrombocytopenia Other congenital or acquired thrombophilia Stroke (< 1 month) Elective arthroplasty Hip, pelvis, or leg fracture Acute spinal cord injury (< 1 month) Prophylaxis Regimen: Total Risk Factor Score Risk Level Prophylaxis Regimen 0-1 Low Early ambulation 2 Moderate Order ONE of the following: *Sequential Compression Device (SCD) *Heparin 5000 units SQ BID 3-4 Higher Order ONE of the following medications: *Heparin 5000 units SQ TID *Enoxaparin/Lovenox 40 mg SQ daily (WT < 150 kg, CrCl > 30 mL/min) *Enoxaparin/Lovenox 30 mg SQ daily (WT < 150 kg, CrCl > 10-29 mL/min) *Enoxaparin/Lovenox 30 mg SQ BID (WT < 150 kg, CrCl > 30 mL/min) AND/OR *Sequential Compression Device (SCD) 5 or more Highest Order ONE of the following medications: *Heparin 5000 units SQ TID (Preferred with Epidurals) *Enoxaparin/Lovenox 40 mg SQ daily (WT < 150 kg, CrCl > 30 mL/min) *Enoxaparin/Lovenox 30 mg SQ daily (WT < 150 kg, CrCl > 10-29 mL/min) *Enoxaparin/Lovenox 30 mg SQ BID (WT < 150 kg, CrCl > 30 mL/min) AND *Sequential Compression Device (SCD) Assessment and Plan - Assessment and Plan Plan: NEURO: Toxic metabolic encephalopathy secondary to sepsis Pain secondary to kidney stone Fibromyalgia Peripheral neuropathy h/o TBI Hold gabapentin and Zoloft. Home doses are unknown. Lortab as needed for pain. Morphine as needed for breakthrough pain. Avoiding Toradol at this point because creatinine has bumped slightly and then she has received IV contrast; avoiding nephrotoxins when possible. Shaking - most likely rigors. Seizures can also be seen with sepsis, will obtain EEG. RESP: Former tobacco abuse Nasal cannula wean as tolerated CV: Sinus tachycardia secondary to sepsis. Essential hypertension at baseline. She is currently normotensive. Lactic acid is within normal parameters at 1.9. Monitor hemodynamics. Give 2 L LR bolus now and continue fluid with LR at 100 mL/h. Hold Coreg for now while septic. GI: Obesity N.p.o. FEN/RENAL/UROLOGY: 13 mm stone left UPJ with mild hydronephrosis Complicated UTI with sepsis Acute kidney injury CT scan report [facility] 09/04/17 at 15: 14 states 13 mm obstructing calculus at left UPJ. Mild left hydronephrosis. Multiple left renal calculi including 9 mm calculus upper pole left kidney, 9 mm calculus in lower pole of the kidney. Urology consultation. Has received IV contrast for CTA brain/carotids, contacted CT to see when would be able to get noncontrasted image if needed, will call me back. Defer to urology regarding whether repeat imaging will be needed. Have copy of report from [facility] but not the actual images. ID: Complicated acute pyelonephritis secondary to obstructing left stone Sepsis Has failed outpatient antibiotics, has had prior Abx exposure before this and is diabetic so will cover with meropenem dosed based on calculated creatinine clearance of 50 (based on ideal body weight). Continue vancomycin for now. Followup blood and urine cultures. Urology consult for recommendations regarding obstruction for source control. HEME: Monitor CBC. She states she is not on anticoagulant or antiplatelet therapy. ENDO: Diabetes mellitus Monitor bedside glucose and administer low dose insulin sliding scale as indicated. PROPH: SCDs for DVT prophylaxis. Hold pharmacologic DVT prophylaxis pending plan for urologic intervention. Protonix 40 mill grams IV for stress ulcer prophylaxis. ACCESS: [place] providing adequate access at this time. We will place intravenous line if needed. Patient is a retired nurse. Indicates that she is full code. She and her and son were updated at bedside. Full code Patient is critically ill with obstructing stone, UTI, sepsis in need of ICU admission for close hemodynamic monitoring as well as urologic consultation for source control. She is lethargic but is protecting her airway. She will be admitted to [facility]. Reevaluated multiple times throughout the night to reassess stablity. CCT 60 minutes exclusive of separately billable procedures.
[2017-09-05] MEDS ORDERED: Bisacodyl 10 MG Supp RECTAL PRN (00:22)
[2017-09-05] MEDS ORDERED: Acetaminophen 325 MG Tablet PO PRN (00:22)
[2017-09-05] MEDS: NEED HT OTHER SCH (00:43)
[2017-09-05] MEDS ORDERED: Vancomycin Inj 2,500 MG in Sodium Chlor 0.9% Inj 500 ML IV.SIG ONE (01:00)
[2017-09-05] MEDS ORDERED: Chlorhexidine Gluconate 2% 1 Pack (2 Cloths) TOPICAL PRN (04:00)
[2017-09-05] MEDS: Chlorhexidine Gluconate 2% 1 Pack (2 Cloths) TOPICAL SCH (05:41)
[2017-09-05] MEDS ORDERED: Dextrose 50% in Water 50 ML Vial IV.PUSH PRN (06:18)
[2017-09-05 08:07] LABS: Calcium 8.8 mg/dL (8.5-10.1); Carbon Dioxide 25.5 meq/L (21.0-32.0); Potassium 4.2 meq/L (3.5-5.1)
[2017-09-05] MEDS: Senna/Docusate Sodium 8.6/50 MG Tablet PO SCH ×2 (09:50→20:41)
[2017-09-05] MEDS: Morphine Inj 4 MG/ML Vial IV.PUSH PRN ×2 (09:50→20:15)
[2017-09-05] MEDS: Pantoprazole Inj 40 MG Vial IV.PUSH SCH (09:50)
--- NOTE | 2017-09-05 10:47 | CT ---
EXAM DATE: 09/05/2017 10:34 AM EDT AGE/SEX: 67 years / Female INDICATIONS: Left flank pain for two months. CLINICAL DATA: This is the patient's initial encounter. Patient reports that signs and symptoms have been present for 2 months and indicates a pain score of 7/10. MEDICAL/SURGICAL HISTORY: Diabetes. Renal calculi. . back surgery RADIATION DOSE: 18.56 CTDI (mGy) ; Patient body habitus COMPARISON: No prior exams available for comparison. TECHNIQUE: Multiple contiguous axial images were obtained through the abdomen. Images were obtained using multiple row detector helical technique. Using automated exposure control and adjustment of the mA and/or kV according to patient size, radiation dose was kept as low as reasonably achievable to o btain optimal diagnostic quality images. DICOM format image data is available electronically for rev iew and comparison. FINDINGS: Lower Lungs: The visualized lower lungs are clear. Liver: The liver has a homogeneous density without space-occupying lesion. There is no dilation of th e biliary tree. Gallstones. Spleen: Homogeneous density without enlargement. Pancreas: Unremarkable without mass or calcification. Kidneys: Normal in size and shape. No evidence of mass or hydronephrosis. There are some nonobstruct ing calculi left kidney in the lower pole largest measuring 11 mm. Perinephric stranding on the left. Adrenal Glands: Unremarkable. Aorta: The aorta and proximal iliac vessels are grossly unremarkable without aneurysmal dilation. Bowel/Mesentery: The bowel loops are grossly unremarkable. The cecum and sigmoid colon have a normal configuration. Abdominal Wall: Intact. Retroperitoneum: No evidence of adenopathy in the retrocrural, para-aortic, or deep pelvic regions. Bladder: Contours are smooth. Decompressed by [place] catheter. There is some residual contrast in the bladder. Reproductive Organs: No abnormal masses or calcifications seen. Inguinal: The inguinal region is unremarkable without evidence of adenopathy. Bony Structures: Unremarkable. CONCLUSION: 1. Nonobstructing left-sided renal calculi largest measuring 11 mm. 2. Nonspecific stranding adjacent to the left kidney. No hydronephrosis. 3. Cholelithiasis. Electronically signed by: Daniele Pantoja MD 09/05/2017 10:46 AM EDT
--- NOTE | 2017-09-05 11:01 | P.CONNEU ---
History of Present Illness Service: Neurology Primary Care Provider: No Primary Care Physician Family Provider: No Primary Care Physician History of Present Illness: 67-year-old female admitted for mental status changes and shaking brought initially as a stroke alert. No focal deficit noted by the ER doctor CTA brain carotids were negative. No definite temperature start on IV antibiotics she is not IV TPA candidate due to the absence of focal neuro deficits and alternate explanation for her symptoms. She has been admitted to the project management analyst service. UA showed leukocytosis microbiology pending. Review of Systems All other systems reviewed negative except as stated in HPI PMFSH - History History Provided By: Family Member - Medical History Medical History: Medical History (Last Reviewed 09/05/17 @ 08:16 by Brad Jarrett DO) Diabetes Fibromyalgia HTN (hypertension) Kidney stone Patient is Buddhism Refusal of blood transfusions as patient is Buddhism - Surgical History Surgical History: Surgical History (Last Reviewed 09/05/17 @ 08:16 by Brad Jarrett DO) H/O cervical spine surgery History of back surgery History of lithotripsy - Family History Family History: Family History (Last Updated 09/05/17 @ 05:44 by Elo Law MD) Father Stroke Mother Stroke - Tobacco History Tobacco Use In Past 30 Days: No Smoking Status: Former smoker Tobacco Type: Cigarettes Years Smoked: 12 Smoking End Date: when she was 29 - Alcohol History How Often Do You Have a Drink Containing Alcohol: Monthly or less - Substance Use History Substance History: No History of Abuse - Travel History Recent Travel in the [place] Within the Last 8 Weeks: No Recent Travel Out of the Country Within the Last 8 Weeks: No - Immunization History Tetanus Immunization: Unsure Hx Influenza Vaccine This Season: No Medications and Allergies Active Medications: Active Medications Acetaminophen (Tylenol) 650 mg PO Q6H PRN PRN Reason: Fever >101f Hydrocodone Bitart/Acetaminophen ([place] 10/325) 1 tab PO Q4H PRN PRN Reason: PAIN SCALE 1 TO 10 Al Hydroxide/Mg Hydroxide (Milk Of Magnesia Liq) 30 ml PO Q12H PRN PRN Reason: Mild Constipation Bisacodyl (Dulcolax Supp) 10 mg RECTAL DAILY PRN PRN Reason: SEVERE CONSITIPATION Chlorhexidine Gluconate (Chlorhexidine 2% Cloth) 3 pack TOPICAL DAILY@0400 [facility] Stop: 09/10/17 03:59 Last Admin: 09/05/17 05:41 Dose: Not Given Chlorhexidine Gluconate (Chlorhexidine 2% Cloth) 3 pack TOPICAL DAILY@0400 PRN PRN Reason: Extra cloth needed Stop: 09/10/17 03:59 Dextrose (D50w Vial) 50 ml IV.PUSH UNSCH PRN PRN Reason: PER HYPOGLYCEMIA PROTOCOL Glucagon (Glucagon Inj) 1 mg OTHER PRN PRN PRN Reason: for Hypoglycemia Protocol Sodium Chloride (Ns Inj) 1,000 mls @ 70 mls/hr IV.CONT .[id number] [facility] Stop: 09/05/17 11:17 Last Admin: 09/05/17 03:03 Dose: 70 mls/hr Pharmacy Profile Note (Vancomycin Consult Pharmacy) 0 mls @ 0 mls/hr OTHER UNSCH [facility] Meropenem 1,000 mg/ Sodium (Chloride) 100 mls @ 200 mls/hr IV.SIG Q8H [facility] Last Admin: 09/05/17 09:49 Dose: 200 mls/hr Lactated Ringer's (Lr 1000 Ml Inj) 1,000 mls @ 100 mls/hr IV.CONT .Q10H [facility] Last Admin: 09/05/17 05:41 Dose: 100 mls/hr Vancomycin HCl 1,750 mg/ (Sodium Chloride) 517.5 mls @ 250 mls/hr IV.SIG Q18H [facility] Insulin Aspart (Novolog Insulin Correctional Sugar Inj) 0 unit SQ Q6HR REK[facility]; Protocol Lactulose (Lactulose Liq) 30 ml PO DAILY PRN PRN Reason: SEVERE CONSITIPATION Miscellaneous Information ([facility] Ordered Lab Info) 0 each OTHER ONCE ONE Stop: 09/07/17 14:46 Morphine Sulfate (Morphine Inj) 4 mg IV.PUSH Q2H PRN PRN Reason: breakthrough pain Last Admin: 09/05/17 09:50 Dose: 4 mg Pantoprazole Sodium (Protonix Inj) 40 mg IV.PUSH DAILY [facility] Last Admin: 09/05/17 09:50 Dose: 40 mg Senna/Docusate Sodium (Raisa-Colace) 1 tab PO BID [facility] Last Admin: 09/05/17 09:50 Dose: 1 tab Sennosides (Senokot) 17.2 mg PO Q12H PRN PRN Reason: Moderate Constipation Sodium Chloride (Ns Flush) 2 ml IV.FLUSH BID REK[facility] Last Admin: 09/05/17 09:51 Dose: 2 ml Sodium Chloride (Ns Flush) 2 ml IV.FLUSH PRN PRN PRN Reason: FLUSH AFTER USING IV ACCESS Allergies Allergy/AdvReac Type Severity Reaction Status Date / Time promethazine [From Phenergan] Allergy Anaphylaxis Verified 09/04/17 20:52 Home Medications Medication Instructions Recorded Confirmed Type gabapentin 300 mg PO TID 09/04/17 09/05/17 History benazepril 80 mg PO DAILY 09/05/17 09/05/17 History carvedilol [Coreg] 25 mg PO BID 09/05/17 09/05/17 History furosemide [Lasix] 40 mg PO BID 09/05/17 09/05/17 History hydrocodone-acetaminophen [De Borgia] 1 tab PO Q8HR PRN 09/05/17 09/05/17 History levothyroxine 250 mcg PO DAILY 09/05/17 09/05/17 History magnesium 400 mg PO DAILY 09/05/17 09/05/17 History pramipexole [Mirapex] 1 mg PO DAILY 09/05/17 09/05/17 History sertraline [Zoloft] 200 mg PO DAILY 09/05/17 09/05/17 History zolpidem [Ambien] 10 mg DAILY 09/05/17 09/05/17 History Exam Vital signs: Vital Signs 09/04/17 20:45 09/04/17 20:47 09/04/17 20:50 Temperature 103.4 F H Pulse Rate 132 H 124 H Respiratory Rate 20 16 Blood Pressure 156/92 H 156/92 H Pulse Oximetry 98 98 98 09/04/17 20:55 09/04/17 21:00 09/04/17 21:30 Temperature Pulse Rate 122 H 123 H Respiratory Rate 20 18 Blood Pressure 181/97 H 211/95 H Pulse Oximetry 98 98 98 09/04/17 22:45 09/04/17 23:25 09/05/17 00:00 Temperature 102.4 F H Pulse Rate 123 H 126 H Respiratory Rate 18 20 Blood Pressure 157/74 H 142/65 H Pulse Oximetry 98 99 09/05/17 00:40 09/05/17 01:00 09/05/17 02:00 Temperature 102.2 F H Pulse Rate 117 H 114 H 108 H Respiratory Rate 18 20 18 Blood Pressure 127/64 116/60 114/56 L Pulse Oximetry 99 99 09/05/17 03:00 09/05/17 03:01 09/05/17 03:56 Temperature 100.0 F H 99.7 F H Pulse Rate 104 H 103 H 94 H Respiratory Rate 18 16 16 Blood Pressure 118/58 L 118/58 L 113/57 L Pulse Oximetry 98 100 98 09/05/17 04:00 09/05/17 05:00 09/05/17 05:42 Temperature Pulse Rate 98 H 88 92 H Respiratory Rate 18 16 18 Blood Pressure 108/58 L 109/59 L 124/59 L Pulse Oximetry 98 98 96 09/05/17 07:40 09/05/17 09:55 09/05/17 10:00 Temperature 100.4 F H Pulse Rate 103 H 104 H Respiratory Rate 18 20 18 Blood Pressure 157/71 H 146/68 H Pulse Oximetry 96 100 Intake & Output 09/04/17 09/05/17 09/05/17 18:59 06:59 18:59 Intake Total 100 / 100 Output Total 400 / 400 Balance -300 / -300 Weight 114.62 kg Intake: IV 100 / 100 Merrem Inj 1,000 MG In NS Inj 100 / 100 100 ML @ 200 mls/hr IV.SIG Q8H [facility] Rx#:[id number] Output: Urine Amount (Catheter) 400 / 400 Indwelling Urethral Catheter 400 / 400 - Constitutional no acute distress - Routine HEENT Exam Head: Present: normocephalic, atraumatic Eye: Present: EOMI - Routine Neck Exam Present: supple, full ROM - Routine Cardiovascular Exam Present: RRR - Routine Abdominal Exam Present: soft Results - Labs CBC & Chem 7: 09/04/17 20:50 09/05/17 07:05 Labs: Laboratory Results - last 24 hr 09/04/17 09/04/17 09/04/17 20:50 20:50 20:50 WBC RBC Hgb POC Hgb (Calc) 10.9 L Hct POC Hct 32.0 L MCV MCH MCHC RDW Plt Count MPV Neut % (Auto) Lymph % (Auto) [place] % (Auto) Eos % (Auto) Baso % (Auto) Neut # (Auto) Lymph # (Auto) [place] # (Auto) Eos # (Auto) Baso # (Auto) WBC Differential Differential Comment PT 11.0 INR 1.1 APTT 21.7 L POC Sodium 142 Sodium 143 POC Potassium 4.3 Potassium 4.2 POC Chloride 106 Chloride 109 H Carbon Dioxide 23.3 Anion Gap 11 POC BUN 20 BUN 19 H Creatinine 1.19 H POC Creatinine 1.0 Estimated GFR 45 L POC Glucose 134 H Random Glucose 132 H Lactic Acid Calcium 8.8 Total Creatine Kinase 67 Troponin I Less than 0.02 L Urine Color Urine Clarity Urine pH Ur Specific [place] Urine Protein Urine Glucose (UA) Urine Ketones Urine Occult Blood Urine Nitrate Urine Bilirubin Urine Urobilinogen Ur Leukocyte Esterase Urine RBC Urine WBC Urine WBC Clumps Ur Squamous Epith Cells Urine Bacteria Hyaline Casts Micro UA Comment Urine Culture Comments Blood Type Blood Type Recheck Antibody Screen 09/04/17 09/04/17 09/04/17 20:50 20:54 21:55 WBC 11.9 H RBC 3.91 L Hgb 11.3 L POC Hgb (Calc) Hct 34.1 L POC Hct MCV 87.2 MCH 28.9 MCHC 33.1 RDW 15.6 Plt Count 229 MPV 6.7 L Neut % (Auto) 85.9 H Lymph % (Auto) 6.3 L [place] % (Auto) 6.8 Eos % (Auto) 0.6 Baso % (Auto) 0.4 Neut # (Auto) 10.2 H Lymph # (Auto) 0.7 L [place] # (Auto) 0.8 Eos # (Auto) 0.1 Baso # (Auto) 0.0 WBC Differential . Differential Comment Auto diff final PT INR APTT POC Sodium Sodium POC Potassium Potassium POC Chloride Chloride Carbon Dioxide Anion Gap POC BUN BUN Creatinine POC Creatinine Estimated GFR POC Glucose 146 H Random Glucose Lactic Acid Calcium Total Creatine Kinase Troponin I Urine Color Yellow Urine Clarity Cloudy H Urine pH 5.0 Ur Specific [place] 1.048 H Urine Protein 100 H Urine Glucose (UA) Negative Urine Ketones Negative Urine Occult Blood Large H Urine Nitrate Negative Urine Bilirubin Negative Urine Urobilinogen Less than 2 Ur Leukocyte Esterase Large H Urine RBC 21 H Urine WBC 104 H Urine WBC Clumps Occasional H Ur Squamous Epith Cells 1 Urine Bacteria Occasional H Hyaline Casts 2 Micro UA Comment Cath-culture ind Urine Culture Comments Cath-cult indicated Blood Type Blood Type Recheck Antibody Screen 0709/05/17 09/05/17 21:55 03:10 07:05 WBC RBC Hgb POC Hgb (Calc) Hct POC Hct MCV MCH MCHC RDW Plt Count MPV Neut % (Auto) Lymph % (Auto) [place] % (Auto) Eos % (Auto) Baso % (Auto) Neut # (Auto) Lymph # (Auto) [place] # (Auto) Eos # (Auto) Baso # (Auto) WBC Differential Differential Comment PT INR APTT POC Sodium Sodium 144 POC Potassium Potassium 4.2 POC Chloride Chloride 111 H Carbon Dioxide 25.5 Anion Gap 8 POC BUN BUN 18 Creatinine 0.95 POC Creatinine Estimated GFR 58 L POC Glucose Random Glucose 101 Lactic Acid 1.9 Calcium 8.8 Total Creatine Kinase Troponin I Urine Color Urine Clarity Urine pH Ur Specific [place] Urine Protein Urine Glucose (UA) Urine Ketones Urine Occult Blood Urine Nitrate Urine Bilirubin Urine Urobilinogen Ur Leukocyte Esterase Urine RBC Urine WBC Urine WBC Clumps Ur Squamous Epith Cells Urine Bacteria Hyaline Casts Micro UA Comment Urine Culture Comments Blood Type O Positive Blood Type Recheck Required Antibody Screen Negative 09/05/17 07:05 WBC RBC Hgb POC Hgb (Calc) Hct POC Hct MCV MCH MCHC RDW Plt Count MPV Neut % (Auto) Lymph % (Auto) [place] % (Auto) Eos % (Auto) Baso % (Auto) Neut # (Auto) Lymph # (Auto) [place] # (Auto) Eos # (Auto) Baso # (Auto) WBC Differential Differential Comment PT INR APTT POC Sodium Sodium POC Potassium Potassium POC Chloride Chloride Carbon Dioxide Anion Gap POC BUN BUN Creatinine POC Creatinine Estimated GFR POC Glucose Random Glucose Lactic Acid 1.9 Calcium Total Creatine Kinase Troponin I Urine Color Urine Clarity Urine pH Ur Specific [place] Urine Protein Urine Glucose (UA) Urine Ketones Urine Occult Blood Urine Nitrate Urine Bilirubin Urine Urobilinogen Ur Leukocyte Esterase Urine RBC Urine WBC Urine WBC Clumps Ur Squamous Epith Cells Urine Bacteria Hyaline Casts Micro UA Comment Urine Culture Comments Blood Type Blood Type Recheck Antibody Screen - Imaging Impressions Head CT 09/04/17 20:49 CONCLUSION: 1. No acute findings in the brain. Report was called to the ordering ER physician Dr. Jarrett at 9:10 PM ] Head CTA 09/04/17 20:49 CONCLUSION: 1. No evidence of vessel truncation or aneurysm. Neck CTA 09/04/17 20:49 CONCLUSION: 1. Negative CTA carotids. Chest X-Ray 09/04/17 20:50 CONCLUSION: No focal infiltrates seen. Elevation of the right hemidiaphragm. Abdomen/Pelvis CT 09/05/17 00:00 CONCLUSION: 1. Nonobstructing left-sided renal calculi largest measuring 11 mm. 2. Nonspecific stranding adjacent to the left kidney. No hydronephrosis. 3. Cholelithiasis. Review/Management - Diagnosis (1) Toxic metabolic encephalopathy Code(s): G92 - Toxic encephalopathy Status: Acute Current Visit: Yes (2) Transient cerebral ischemia Code(s): G45.9 - Transient cerebral ischemic attack, unspecified Status: Acute Current Visit: Yes (3) Acute UTI Code(s): N39.0 - Urinary tract infection, site not specified Status: Acute Current Visit: Yes (4) Hydronephrosis with ureteral calculus Code(s): N13.2 - Hydronephrosis with renal and ureteral calculous obstruction Status: Acute Current Visit: Yes - Review/Management Plan: Toxic metabolic metabolic encephalopathy with mild rigors likely associated with SIRS Improved Recommendations EEG Follow exam Discussed with critical care (2) Transient cerebral ischemia Qualifiers: Transient cerebral ischemia type: unspecified Qualified Code(s): G45.9 - Transient cerebral ischemic attack, unspecified
[2017-09-05] MEDS ORDERED: fentaNYL Citrate Inj 100 MCG/2 ML Ampul ONE (12:43)
[2017-09-05] MEDS ORDERED: ceFAZolin 2 GM Premix Inj 2 GM/50 ML PIGGYBACK IV.SIG ONE (12:56)
--- NOTE | 2017-09-05 13:41 | MB ---
cc: Jared Maddoxn Gildardo DO DATE: 09/05/2017 HISTORY OF PRESENT ILLNESS: This is a 67-year-old female with a history of hypertension, diabetes and kidney stones who has been followed by Dr. Chaney in the past. She had lithotripsy a few years ago and was scheduled to undergo a procedure by Dr. Chaney but it was canceled because she had a urinary tract infection. She presented to the emergency room with left-sided flank pain and CT scan demonstrated an 11 mm nonobstructing left-sided renal stone with stranding around the left kidney with possible pyelonephritis. She has noted fever and chills recently with left-sided flank pain. On admission, she was febrile to 102.3. Her white count was 11.9. Creatinine is normal at 1.1. PAST MEDICAL HISTORY: Includes nephrolithiasis, diabetes, fibromyalgia, and hypertension. PAST SURGICAL HISTORY: Lithotripsy, back surgery, and spine surgery. FAMILY HISTORY: Notable for prior CVA in both the mother and father. SOCIAL HISTORY: She is a former smoker. Occasional social drinking. Denies any history of substance abuse. REVIEW OF SYSTEMS: She notes left-sided flank pain with fever, chills with dysuria. Denies chest pain or shortness of breath, headaches, gait disturbances, bleeding disorders, psychiatric problems or skin lesions. Remaining review of systems were reviewed and were negative. PHYSICAL EXAMINATION: VITAL SIGNS: Temperature is 100.4, heart rate 104, respiratory rate 20, blood pressure 146/68. GENERAL: She is an obese 67-year-old female. HEENT: Normocephalic, atraumatic. Pupils equal, round, regular, reactive to light. Extraocular movements intact. NECK: Supple. HEART: Regular rate and rhythm. LUNGS: Clear. ABDOMEN: Soft. There is left-sided tenderness. Left CVA tenderness is noted. GENITOURINARY: Normal female external genitalia. EXTREMITIES: Show no cyanosis, clubbing, or edema. NEUROLOGIC: Cranial nerves 2-12 are intact. LABORATORY DATA: White count 11.9, hemoglobin 11.3, hematocrit 34.1, platelet count of 229. Sodium 144, potassium 4.2, chloride 111, CO2 of 25.5, BUN 18, creatinine 0.95, glucose is 101. PT is 11.0, INR 1.1, PTT is 21.7. Urinalysis shows 104 white cells with 21 red cells. IMAGING STUDIES: Again, CAT scan abdomen and pelvis shows 11 mm stone, which is nonobstructing in the left kidney with perinephric stranding, possible pyelonephritis. ASSESSMENT AND PLAN: This is a 67-year-old female with a history of nephrolithiasis, admitted with fever and chills and what appears to be pyelonephritis with an 11 mm nonobstructing renal calculus. The patient was informed that she is nonobstructed and options were discussed including placement of a left double-J stent. The patient wishes to proceed with placement of a left double-J stent as this will protect the kidney and to maximize drainage and to avoid this obstruction from her 11 mm stone presently within the left kidney. The family was with her the bedside and risks and benefits were discussed and they were willing to proceed. Thank you for the consultation and allowing me to participate in the care of this patient. DO LORIN Vernon/GUSTAVO , 12:43 PM , 01:39 PM
--- NOTE | 2017-09-05 13:49 | P.OP ---
- Preoperative Diagnosis (1) Pyelonephritis (2) Hydronephrosis with ureteral calculus - Postoperative Diagnosis (1) Hydronephrosis with renal calculous obstruction Date of procedure: 09/05/17 Procedure: Cystoscopy with left retrograde pyelogram and left double-J stent insertion Anesthesia: GETA, other (general LMA) Surgeon: Breezy Maddox DO Operation and Findings: 67-year-old female who presented to the emergency room with fever and tachycardia. CT scan revealed a 11 mm nonobstructing renal calculus with pyelonephritis with moderate hydronephrosis. Risk and benefits were discussed preoperatively whether to place a stent or not and the patient wished to have a stent inserted. Risk and benefits were discussed with her and her family at the bedside they were willing to proceed. Patient was brought to operating room and identified by myself as Brenda Ling. She was placed in a dorsal lithotomy position, prepped and draped in sterile fashion, received preprocedure antibiotics and general LMA anesthesia was administered. 22 [place] cystoscope was inserted the bladder gee cystoscopy did not reveal any abnormalities. The left ureteral orifice was identified and a 5 [place] opening catheter was inserted in the left ureteral orifice without difficulty. A left retrograde pyelogram study was performed. Normal filling of the left ureter and collecting system was identified with a filling defect within the collecting system consistent with the stone. A 0.35 sensor wire was then passed through the open-ended catheter with a good curl in the kidney and the open-ended catheter was then removed. A 6 [place] 26 cm left double-J stent was then passed over the wire with a good curl in the kidney and the bladder. A 16 [place] catheter was inserted into the bladder to completion of the procedure and she tolerated the procedure well. She was awoken and extubated transferred recovery in stable condition.
[2017-09-05] MEDS ORDERED: *morphine SULFATE 10 MG/ML PERIprocedure ONLY ONE (14:36)
--- NOTE | 2017-09-05 16:10 | ECG ---
Date Performed: 09/04/2017 Time Performed: 20:50:24 PTAGE: 67 years EKG: SINUS TACHYCARDIA LEFT AXIS DEVIATION NONSPECIFIC ST-T CHANGE ABNORMAL ECG Compared to PREVIOUS TRACING , axis more leftward, heart rate is faster. PREVIOUS TRACIN11/04/2011 01.33 DOCTOR: Carlos Delvalle Interpretating Date/Time 09/05/2017 16:09:32
[2017-09-05] MEDS ORDERED: Lidocaine PF 1% Inj 5 ML Syringe INFILTRATN ONE (16:20)
[2017-09-05] MEDS: Insulin NovoLOG Aspart Correctional Sugar Inj SQ SCH ×3 (16:46→23:56)
[2017-09-05 18:02] LABS: Baso % (Auto) 0.4 % (0.0-2.0); Eos # (Auto) 0.1 th/mm3 (0.0-0.4); Eos % (Auto) 0.7 % (0.0-4.0); Hematocrit 30.2 % (35.0-46.0); Lymph # (Auto) 0.3 th/mm3 (1.0-4.8); Mean Corpuscular HGB Conc 33.2 % (32.0-36.0); Mean Corpuscular Hemoglobin 29.5 pg (27.0-34.0); Mean Corpuscular Volume 88.8 fL (80.0-100.0); Mean Platelet Volume 7.3 fL (7.0-11.0); Mono # (Auto) 0.4 th/mm3 (0.0-0.9); Mono % (Auto) 5.5 % (0.0-8.0); Neut # (Auto) 7.1 th/mm3 (1.8-7.7); Neut % (Auto) 89.4 % (16.0-70.0); Platelet Count 194 th/mm3 (150-450); Red Cell Distribution Width 15.5 % (11.6-17.2); White Blood Count 7.9 th/mm3 (4.0-11.0)
[2017-09-05] MEDS ORDERED: Zolpidem Tartrate 5 MG Tablet PO PRN (19:29)
[2017-09-05] MEDS: Gabapentin 300 MG Capsule PO SCH (20:12)
[2017-09-05] MEDS: Furosemide 40 MG Tablet PO SCH (20:12)
[2017-09-05] MEDS: Carvedilol 12.5 MG Tablet PO SCH (20:13)
[2017-09-06] MEDS: Vancomycin Inj 1,750 MG in Sodium Chlor 0.9% Inj 500 ML IV.SIG SCH ×2 (02:57→20:58)
[2017-09-06] MEDS: Morphine Inj 4 MG/ML Vial IV.PUSH PRN ×5 (02:57→20:56)
[2017-09-06 04:09] LABS: Baso % (Auto) 0.2 % (0.0-2.0); Eos % (Auto) 0.1 % (0.0-4.0); Hematocrit 28.2 % (35.0-46.0); Hemoglobin 9.5 gm/dL (11.6-15.3); Lymph # (Auto) 0.4 th/mm3 (1.0-4.8); Lymph % (Auto) 6.2 % (9.0-44.0); Mean Corpuscular HGB Conc 33.7 % (32.0-36.0); Mean Corpuscular Hemoglobin 29.4 pg (27.0-34.0); Mean Corpuscular Volume 87.2 fL (80.0-100.0); Mono # (Auto) 0.5 th/mm3 (0.0-0.9); Mono % (Auto) 8.3 % (0.0-8.0); Neut # (Auto) 5.6 th/mm3 (1.8-7.7); Neut % (Auto) 85.2 % (16.0-70.0); Platelet Count 187 th/mm3 (150-450); Red Blood Count 3.23 mil/mm3 (4.00-5.30); Red Cell Distribution Width 15.7 % (11.6-17.2); White Blood Count 6.6 th/mm3 (4.0-11.0)
[2017-09-06 04:35] LABS: Alanine Aminotransferase 14 U/L (10-53); Anion Gap 7 meq/L (5-15); Aspartate Aminotransferase 7 U/L (15-37); Blood Urea Nitrogen 14 mg/dL (7-18); Calcium 8.4 mg/dL (8.5-10.1); Carbon Dioxide 27.5 meq/L (21.0-32.0); Chloride 109 meq/L (98-107); Glomerular Filtration Rate 69 mL/min (>89); Glucose,Random 176 mg/dL (74-106); Potassium 3.8 meq/L (3.5-5.1); Sodium 143 meq/L (136-145)
[2017-09-06 04:37] LABS: Alkaline Phosphatase 77 U/L (45-117); Total Protein 6.9 g/dL (6.4-8.2)
[2017-09-06] MEDS: Chlorhexidine Gluconate 2% 1 Pack (2 Cloths) TOPICAL SCH (05:14)
[2017-09-06] MEDS: Insulin NovoLOG Aspart Correctional Sugar Inj SQ SCH ×4 (06:15→23:27)
[2017-09-06] MEDS: Levothyroxine 125 MCG Tablet PO SCH (06:46)
[2017-09-06] MEDS: Sertraline 100 MG Tablet PO SCH (08:00)
[2017-09-06] MEDS: Carvedilol 12.5 MG Tablet PO SCH ×2 (08:00→20:58)
[2017-09-06] MEDS: Gabapentin 300 MG Capsule PO SCH ×3 (08:00→17:59)
[2017-09-06] MEDS: Pantoprazole Inj 40 MG Vial IV.PUSH SCH (08:01)
[2017-09-06] MEDS: Senna/Docusate Sodium 8.6/50 MG Tablet PO SCH ×2 (08:01→20:58)
[2017-09-06] MEDS: Furosemide 40 MG Tablet PO SCH (08:01)
--- NOTE | 2017-09-06 09:31 | P.PNIM ---
Subjective Interval history: Pt is a pleasant 67 y/o F with h/o HTN, DM, fibromyalgia, and recurrent kidney stones. Pt was admitted to [facility] through the ER d/t AMS, urosepsis, and obstructing left ureteral stone. Pt follows with Urology, Dr. Grande. Pt has had prior lithotripsy. - Pt began having left flank pain about 2 weeks ago. - Pt had CT demonstrating 13 mm left stone. - Pt scheduled for laser fragmentation on 09/02/17 but her states the procedure was postponed because of pyuria. - She had been told to take preoperative antibiotics but she had not started them when she was supposed to. She was told to continue abx. - - 09/04 Pt developed more severe L flank pain so she presented to [facility] where CT scan demonstrated mild left hydronephrosis, 13 mm obstructing calculus at left UPJ. She was afebrile. - Pt received Rocephin? and was discharged from the ER - While eating dinner with her , pt developed shaking with arms in flexion and though did not appear to completely lose consciousness, she was minimally responsive. - Pt was evaluated for CVA. - CTA brains and carotids were negative. - Pt was evaluated by Neurology and felt NOT to have had a CVA. NO TPA was given - 09/05/17, Pt underwent cystoscopy with left retrograde pyelogram and left double J-stent insertion performed by Dr. Breezy Maddox - Pt has NO new clinical complaints. Physical Exam Vital signs: Vital Signs 09/05/17 09:55 09/05/17 10:00 09/05/17 13:58 Temperature 100.4 F H 98.6 F Pulse Rate 104 H 105 H Respiratory Rate 20 18 16 Blood Pressure 146/68 H 150/78 H Pulse Oximetry 100 96 09/05/17 14:00 09/05/17 14:15 09/05/17 14:30 Temperature Pulse Rate 106 H 97 H 96 H Respiratory Rate 14 14 14 Blood Pressure 137/63 141/65 H 134/88 Pulse Oximetry 96 97 97 09/05/17 14:45 09/05/17 15:00 09/05/17 15:15 Temperature 98.2 F Pulse Rate 94 H 93 H 95 H Respiratory Rate 14 14 Blood Pressure 123/60 129/65 138/69 Pulse Oximetry 96 98 98 09/05/17 16:00 09/05/17 17:00 09/05/17 18:00 Temperature 98.8 F 98.8 F Pulse Rate 94 H 88 95 H Respiratory Rate 22 28 H 16 Blood Pressure 131/61 144/65 H 127/61 Pulse Oximetry 99 99 96 09/05/17 20:00 09/05/17 21:02 09/06/17 00:00 Temperature 98.3 F 97.9 F Pulse Rate 96 H 92 H Respiratory Rate 20 18 Blood Pressure 137/65 128/59 L Pulse Oximetry 97 97 97 09/06/17 04:00 09/06/17 08:00 Temperature 98.2 F 97.9 F Pulse Rate 74 77 Respiratory Rate 20 24 Blood Pressure 130/62 149/72 H Pulse Oximetry 94 L Intake & Output 09/05/17 09/06/17 09/06/17 18:59 06:59 18:59 Intake Total 6152 / 6152 2618 / 2618 65 / 65 Output Total 2699 / 2699 Balance 3452 / 3452 618 / 618 65 / 65 Intake: IV 4972 / 4972 2618 / 2618 LR 1000 mL Inj 1,000 ML @ 100 1000 / 1000 1999 / 1999 mls/hr IV.CONT .Q10H [facility] Rx#: [id number] Merrem Inj 1,000 MG In NS Inj 200 / 200 100 / 100 100 ML @ 200 mls/hr IV.SIG Q8H [facility] Rx#:[id number] Vancomycin Inj 1,750 MG In NS 518 / 518 Inj 500 ML @ 250 mls/hr IV.SIG Q18H [facility] Rx#:[id number] Ancef 2 GM Premix Inj 2 gm In 50 / 50 50 ml @ 0 mls/hr IV.SIG .[facility]- [facility] ONE Rx#:[id number] Oral 480 / 480 65 / 65 Anesthesia Amount 700 / 700 Output: Urine Amount (Catheter) 2699 Indwelling Urethral Catheter 2699 Narrative: GENERAL: This is a well-nourished, well-developed patient, in no apparent distress. CARDIOVASCULAR: Regular rate and rhythm without murmurs, gallops, or rubs. RESPIRATORY: Clear to auscultation. Breath sounds equal bilaterally. No wheezes , rales, or rhonchi. GASTROINTESTINAL: Abdomen soft, non-tender, nondistended. Normal active bowel sounds MUSCULOSKELETAL: Extremities without clubbing, cyanosis, or edema. NEURO: Alert & Oriented x4 to person, place, time, situation. Moves all ext x4 - Urinary Catheter Management Indwelling Urethral Catheter Cath placed during this visit: yes Reason for continuing: Hourly intake/output Insertion date: 09/04/17 Insertion time: 23:21 Results - Labs CBC & Chem 7: 09/06/17 03:44 09/06/17 03:44 09/04/17 21:55 Blood - Peripheral Aerobic Blood Culture - Preliminary No growth in 1 day 09/04/17 21:55 Blood - Peripheral Anaerobic Blood Culture - Preliminary No growth in 1 day 09/04/17 21:50 Blood - Peripheral Aerobic Blood Culture - Preliminary No growth in 1 day 09/04/17 21:50 Blood - Peripheral Anaerobic Blood Culture - Preliminary No growth in 1 day 09/04/17 21:55 Catheterized Urine Urine Culture - Preliminary Immature growth - reincubate - Imaging Head CT 09/04/17 20:49 CONCLUSION: 1. No acute findings in the brain. Report was called to the ordering ER physician Dr. Jarrett at 9:10 PM ] Head CTA 09/04/17 20:49 CONCLUSION: 1. No evidence of vessel truncation or aneurysm. Neck CTA 09/04/17 20:49 CONCLUSION: 1. Negative CTA carotids. Chest X-Ray 09/04/17 20:50 CONCLUSION: No focal infiltrates seen. Elevation of the right hemidiaphragm. Abdomen/Pelvis CT 09/05/17 00:00 CONCLUSION: 1. Nonobstructing left-sided renal calculi largest measuring 11 mm. 2. Nonspecific stranding adjacent to the left kidney. No hydronephrosis. 3. Cholelithiasis. Assessment and Plan - Assessment (1) Pyelonephritis Code(s): N12 - Tubulo-interstitial nephritis, not specified as acute or chronic Status: Acute Plan: Pt is a pleasant 67 y/o F with h/o HTN, DM, fibromyalgia, and recurrent kidney stones. Pt was admitted to [facility] through the ER d/t AMS, urosepsis, and obstructing left ureteral stone. Pt follows with Urology, Dr. Grande. Pt has had prior lithotripsy. - Pt began having left flank pain about 2 weeks ago. - Pt had CT demonstrating 13 mm left stone. - Pt scheduled for laser fragmentation on 09/02/17 but her states the procedure was postponed because of pyuria. - She had been told to take preoperative antibiotics but she had not started them when she was supposed to. She was told to continue abx. - - 09/04 Pt developed more severe L flank pain so she presented to [facility] where CT scan demonstrated mild left hydronephrosis, 13 mm obstructing calculus at left UPJ. She was afebrile. - Pt received Rocephin? and was discharged from the ER - While eating dinner with her , pt developed shaking with arms in flexion and though did not appear to completely lose consciousness, she was minimally responsive. - Pt was evaluated for CVA. - CTA brains and carotids were negative. - Pt was evaluated by Neurology and felt NOT to have had a CVA. NO TPA was given - 09/05/17, Pt underwent cystoscopy with left retrograde pyelogram and left double J-stent insertion performed by Dr. Breezy Maddox - Pt has NO new clinical complaints. - blood Cx (09/04) --> NGTD - Urine Cx (09/04) --> gram negative rods - Meropenem, will likely adjust once Urine Cx results have been finalized - DVT prophylaxis with SCDs - supportive care - anticipate d/c in 2-3 days. HTN - continue coreg DM2 - SSI (2) Hydronephrosis with renal calculous obstruction Code(s): N13.2 - Hydronephrosis with renal and ureteral calculous obstruction Status: Acute (3) Acute UTI Code(s): N39.0 - Urinary tract infection, site not specified Status: Acute (4) Toxic metabolic encephalopathy Code(s): G92 - Toxic encephalopathy Status: Acute
--- NOTE | 2017-09-06 09:46 | P.PNNEU ---
Subjective Subjective Comments: No acute events reported No headache No chest pain No dyspnea Active Medications: Active Medications Acetaminophen (Tylenol) 650 mg PO Q6H PRN PRN Reason: Fever >101f Hydrocodone Bitart/Acetaminophen ([place] 10/325) 1 tab PO Q4H PRN PRN Reason: PAIN SCALE 1 TO 10 Al Hydroxide/Mg Hydroxide (Milk Of Magnesia Liq) 30 ml PO Q12H PRN PRN Reason: Mild Constipation Bisacodyl (Dulcolax Supp) 10 mg RECTAL DAILY PRN PRN Reason: SEVERE CONSITIPATION Carvedilol (Coreg) 25 mg PO BID [facility] Last Admin: 09/06/17 08:00 Dose: 25 mg Chlorhexidine Gluconate (Chlorhexidine 2% Cloth) 3 pack TOPICAL DAILY@0400 [facility] Stop: 09/10/17 03:59 Last Admin: 09/06/17 05:14 Dose: Not Given Chlorhexidine Gluconate (Chlorhexidine 2% Cloth) 3 pack TOPICAL DAILY@0400 PRN PRN Reason: Extra cloth needed Stop: 09/10/17 03:59 Dextrose (D50w Vial) 50 ml IV.PUSH UNSCH PRN PRN Reason: PER HYPOGLYCEMIA PROTOCOL Furosemide (Lasix) 40 mg PO BID [facility] Last Admin: 09/06/17 08:01 Dose: 40 mg Gabapentin (Neurontin) 300 mg PO TID [facility] Last Admin: 09/06/17 08:00 Dose: 300 mg Glucagon (Glucagon Inj) 1 mg OTHER PRN PRN PRN Reason: for Hypoglycemia Protocol Pharmacy Profile Note (Vancomycin Consult Pharmacy) 0 mls @ 0 mls/hr OTHER UNSCH [facility] Meropenem 1,000 mg/ Sodium (Chloride) 100 mls @ 200 mls/hr IV.SIG Q8H [facility] Last Admin: 09/06/17 08:09 Dose: 200 mls/hr Lactated Ringer's (Lr 1000 Ml Inj) 1,000 mls @ 100 mls/hr IV.CONT .Q10H [facility] Last Admin: 09/06/17 06:18 Dose: 100 mls/hr Vancomycin HCl 1,750 mg/ (Sodium Chloride) 517.5 mls @ 250 mls/hr IV.SIG Q18H [facility] Last Infusion: 09/06/17 05:14 Dose: Infused Insulin Aspart (Novolog Insulin Correctional Sugar Inj) 0 unit SQ Q6HR [facility]; Protocol Last Admin: 09/06/17 06:15 Dose: 1 unit Lactulose (Lactulose Liq) 30 ml PO DAILY PRN PRN Reason: SEVERE CONSITIPATION Levothyroxine Sodium (Synthroid) 250 mcg PO DAILY@0600 [facility] Last Admin: 09/06/17 06:46 Dose: 250 mcg Magnesium Oxide (Mag-Ox) 400 mg PO DAILY@1100 [facility] Miscellaneous Information ([facility] Ordered Lab Info) 0 each OTHER ONCE ONE Stop: 09/07/17 14:46 Miscellaneous Information ([facility]) 1 each OTHER UNSCH PRN PRN Reason: SEE LABEL COMMENTS Stop: 09/06/17 13:57 Morphine Sulfate (Morphine Inj) 4 mg IV.PUSH Q2H PRN PRN Reason: breakthrough pain Last Admin: 09/06/17 09:31 Dose: 4 mg Pantoprazole Sodium (Protonix Inj) 40 mg IV.PUSH DAILY [facility] Last Admin: 09/06/17 08:01 Dose: 40 mg Pramipexole Dihydrochloride (Mirapex) 1 mg PO DAILY [facility] Last Admin: 09/06/17 08:00 Dose: 1 mg Senna/Docusate Sodium (Raisa-Colace) 1 tab PO BID [facility] Last Admin: 09/06/17 08:01 Dose: 1 tab Sennosides (Senokot) 17.2 mg PO Q12H PRN PRN Reason: Moderate Constipation Sertraline HCl (Zoloft) 200 mg PO DAILY [facility] Last Admin: 09/06/17 08:00 Dose: 200 mg Sodium Chloride (Ns Flush) 2 ml IV.FLUSH BID [facility] Last Admin: 09/06/17 08:01 Dose: 2 ml Sodium Chloride (Ns Flush) 2 ml IV.FLUSH PRN PRN PRN Reason: FLUSH AFTER USING IV ACCESS Zolpidem Tartrate (Ambien) 10 mg PO HS PRN PRN Reason: sleep Last Admin: 09/06/17 00:05 Dose: 10 mg Allergies/Adverse Reactions: Allergies Allergy/AdvReac Type Severity Reaction Status Date / Time promethazine [From Phenergan] Allergy Anaphylaxis Verified 09/04/17 20:52 Review of Systems All other systems reviewed negative except as stated in HPI Physical Exam Vital signs: Vital Signs 09/05/17 09:55 09/05/17 10:00 09/05/17 13:58 Temperature 100.4 F H 98.6 F Pulse Rate 104 H 105 H Respiratory Rate 20 18 16 Blood Pressure 146/68 H 150/78 H Pulse Oximetry 100 96 09/05/17 14:00 09/05/17 14:15 09/05/17 14:30 Temperature Pulse Rate 106 H 97 H 96 H Respiratory Rate 14 14 14 Blood Pressure 137/63 141/65 H 134/88 Pulse Oximetry 96 97 97 09/05/17 14:45 09/05/17 15:00 09/05/17 15:15 Temperature 98.2 F Pulse Rate 94 H 93 H 95 H Respiratory Rate 14 14 Blood Pressure 123/60 129/65 138/69 Pulse Oximetry 96 98 98 09/05/17 16:00 09/05/17 17:00 09/05/17 18:00 Temperature 98.8 F 98.8 F Pulse Rate 94 H 88 95 H Respiratory Rate 22 28 H 16 Blood Pressure 131/61 144/65 H 127/61 Pulse Oximetry 99 99 96 09/05/17 20:00 09/05/17 21:02 09/06/17 00:00 Temperature 98.3 F 97.9 F Pulse Rate 96 H 92 H Respiratory Rate 20 18 Blood Pressure 137/65 128/59 L Pulse Oximetry 97 97 97 09/06/17 04:00 09/06/17 08:00 Temperature 98.2 F 97.9 F Pulse Rate 74 77 Respiratory Rate 20 24 Blood Pressure 130/62 149/72 H Pulse Oximetry 94 L Intake & Output 09/05/17 09/06/17 09/06/17 18:59 06:59 18:59 Intake Total 6152 / 6152 2618 / 2618 65 / 65 Output Total 2700 / 2700 1999 / 1999 Balance 3452 / 3452 618 / 618 65 / 65 Intake: IV 4972 / 4972 2618 / 2618 LR 1000 mL Inj 1,000 ML @ 100 1000 / 1000 1999 / 1999 mls/hr IV.CONT .Q10H [facility] Rx#: [id number] Merrem Inj 1,000 MG In NS Inj 200 / 200 100 / 100 100 ML @ 200 mls/hr IV.SIG Q8H [facility] Rx#:[id number] Vancomycin Inj 1,750 MG In NS 518 / 518 Inj 500 ML @ 250 mls/hr IV.SIG Q18H [facility] Rx#:[id number] Ancef 2 GM Premix Inj 2 gm In 50 / 50 50 ml @ 0 mls/hr IV.SIG .[facility] Rx#:[id number] Oral 480 / 480 65 / 65 Anesthesia Amount 700 / 700 Output: Urine Amount (Catheter) 2700 / 2700 1999 Indwelling Urethral Catheter 2699 Narrative: Awake alert sitting up in her chair oriented 3 articulate fluent, pleasant, extraocular movements intact no facial asymmetry tongue midline no pronator drift, mild right upper extremity resting postural tremor slight increased tone in the right upper extremity gait not assessed secondary to fall risk no neglect - Urinary Catheter Management Indwelling Urethral Catheter Cath placed during this visit: yes Reason for continuing: Hourly intake/output Insertion date: 09/04/17 Insertion time: 23:21 Objective Laboratory Results - last 24 hr 09/05/17 09/05/17 09/05/17 16:45 17:54 20:45 WBC 7.9 RBC 3.40 L Hgb 10.0 L Hct 30.2 L MCV 88.8 MCH 29.5 MCHC 33.2 RDW 15.5 Plt Count 194 MPV 7.3 Neut % (Auto) 89.4 H Lymph % (Auto) 4.0 L [place] % (Auto) 5.5 Eos % (Auto) 0.7 Baso % (Auto) 0.4 Neut # (Auto) 7.1 Lymph # (Auto) 0.3 L [place] # (Auto) 0.4 Eos # (Auto) 0.1 Baso # (Auto) 0.0 WBC Differential . Differential Comment Auto diff final Sodium Potassium Chloride Carbon Dioxide Anion Gap BUN Creatinine Estimated GFR POC Glucose 216 H Random Glucose Calcium Total Bilirubin AST ALT Alkaline Phosphatase Total Protein Albumin Nasal Screen MRSA (PCR) Not detected 09/05/17 09/06/17 09/06/17 23:49 03:44 03:44 WBC 6.6 RBC 3.23 L Hgb 9.5 L Hct 28.2 L MCV 87.2 MCH 29.4 MCHC 33.7 RDW 15.7 Plt Count 187 MPV 7.0 Neut % (Auto) 85.2 H Lymph % (Auto) 6.2 L [place] % (Auto) 8.3 H Eos % (Auto) 0.1 Baso % (Auto) 0.2 Neut # (Auto) 5.6 Lymph # (Auto) 0.4 L [place] # (Auto) 0.5 Eos # (Auto) 0.0 Baso # (Auto) 0.0 WBC Differential . Differential Comment Auto diff final Sodium 143 Potassium 3.8 Chloride 109 H Carbon Dioxide 27.5 Anion Gap 7 BUN 14 Creatinine 0.82 Estimated GFR 69 L POC Glucose 251 H Random Glucose 176 H Calcium 8.4 L Total Bilirubin 0.3 AST 7 L ALT 14 Alkaline Phosphatase 77 Total Protein 6.9 Albumin 3.0 L Nasal Screen MRSA (PCR) Microbiology 09/04/17 21:55 Aerobic Blood Culture - Preliminary Blood - Peripheral No growth in 1 day Anaerobic Blood Culture - Preliminary No growth in 1 day 09/04/17 21:50 Aerobic Blood Culture - Preliminary Blood - Peripheral No growth in 1 day Anaerobic Blood Culture - Preliminary No growth in 1 day 09/04/17 21:55 Urine Culture - Preliminary Catheterized Urine Immature growth - reincubate Review/Management - Diagnosis (1) Toxic metabolic encephalopathy Code(s): G92 - Toxic encephalopathy Status: Acute Current Visit: Yes (2) Transient cerebral ischemia Code(s): G45.9 - Transient cerebral ischemic attack, unspecified Status: Acute Current Visit: Yes (3) Acute UTI Code(s): N39.0 - Urinary tract infection, site not specified Status: Acute Current Visit: Yes (4) Hydronephrosis with ureteral calculus Code(s): N13.2 - Hydronephrosis with renal and ureteral calculous obstruction Status: Acute Current Visit: Yes - Review/Management Plan: Toxic metabolic metabolic encephalopathy with mild rigors likely associated with SIRS Improved Chronic tremor Recommendations Doing well Mental status appropriate Can go to the floor, discharge planning home from neurologic standpoint Follow-up in the outpatient setting for her tremors and serial neurologic exams Discussed with medical (2) Transient cerebral ischemia Qualifiers: Transient cerebral ischemia type: unspecified Qualified Code(s): G45.9 - Transient cerebral ischemic attack, unspecified
[2017-09-06] MEDS: Magnesium Oxide 400 MG Tablet PO SCH (11:00)
--- NOTE | 2017-09-06 16:49 | P.PNURO ---
Subjective Patient symptoms today: Pt seen and examined. Feeling better. Some stent discomfort. Objective Vital Signs: Vital Signs 09/05/17 17:00 09/05/17 18:00 09/05/17 20:00 Temperature 98.8 F 98.3 F Pulse Rate 88 95 H 96 H Respiratory Rate 28 H 16 20 Blood Pressure 144/65 H 127/61 137/65 Pulse Oximetry 99 96 97 09/05/17 21:02 09/06/17 00:00 09/06/17 04:00 Temperature 97.9 F 98.2 F Pulse Rate 92 H 74 Respiratory Rate 18 20 Blood Pressure 128/59 L 130/62 Pulse Oximetry 97 97 09/06/17 08:00 09/06/17 09:00 09/06/17 12:00 Temperature 97.9 F 97.9 F Pulse Rate 77 82 77 Respiratory Rate 24 20 Blood Pressure 149/72 H 149/72 H Pulse Oximetry 94 L 94 L Intake & Output 09/05/17 09/06/17 09/06/17 18:59 06:59 18:59 Intake Total 6152 / 6152 2618 / 2618 1165 / 1165 Output Total 2700 / 2700 1999 Balance 3452 / 3452 618 / 618 1165 / 1165 Intake: IV 4972 / 4972 2618 / 2618 1100 / 1100 LR 1000 mL Inj 1,000 ML @ 100 1000 / 1000 1999 1000 / 1000 mls/hr IV.CONT .Q10H [facility] Rx#: [id number] Merrem Inj 1,000 MG In NS Inj 200 / 200 100 / 100 100 / 100 100 ML @ 200 mls/hr IV.SIG Q8H [facility] Rx#:[id number] Vancomycin Inj 1,750 MG In NS 518 / 518 Inj 500 ML @ 250 mls/hr IV.SIG Q18H [facility] Rx#:[id number] Ancef 2 GM Premix Inj 2 gm In 50 / 50 50 ml @ 0 mls/hr IV.SIG .STK- [facility] Rx#:[id number] Oral 480 / 480 65 / 65 Anesthesia Amount 700 / 700 Output: Urine Amount (Catheter) 2700 / 2700 1999 Indwelling Urethral Catheter 2700 / 2700 1999 Result Diagrams: 09/06/17 03:44 09/06/17 03:44 Medications and IVs: Active Medications Generic Name Dose Route Start Last Admin Trade Name Freq PRN Reason Stop Dose Admin Acetaminophen 650 mg 09/05/17 00:22 Tylenol PO Q6H PRN Fever >101f Hydrocodone Bitart/Acetaminophen 1 tab 09/05/17 00:30 09/06/17 15:21 [place] 10/325 PO 1 tab Q4H PRN Administration PAIN SCALE 1 TO 10 Al Hydroxide/Mg Hydroxide 30 ml 09/05/17 00:22 Milk Of Magnesia Liq PO Q12H PRN Mild Constipation Bisacodyl 10 mg 09/05/17 00:22 Dulcolax Supp RECTAL DAILY PRN SEVERE CONSITIPATION Carvedilol 25 mg 09/05/17 21:00 09/06/17 08:00 Coreg PO 25 mg BID [facility] Administration Chlorhexidine Gluconate 3 pack 09/05/17 04:00 09/06/17 05:14 Chlorhexidine 2% Cloth TOPICAL 09/10/17 03:59 Not Given DAILY@0400 [facility] Chlorhexidine Gluconate 3 pack 09/05/17 04:00 Chlorhexidine 2% Cloth TOPICAL 09/10/17 03:59 DAILY@0400 PRN Extra cloth needed Dextrose 50 ml 09/05/17 06:18 D50w Vial IV.PUSH UNSCH PRN PER HYPOGLYCEMIA PROTOCOL Gabapentin 300 mg 09/05/17 20:00 09/06/17 13:48 Neurontin PO 300 mg TID [facility] Administration Glucagon 1 mg 09/05/17 06:18 Glucagon Inj OTHER PRN PRN for Hypoglycemia Protocol Pharmacy Profile Note 0 mls @ 0 mls/hr 09/04/17 23:00 Vancomycin Consult Pharmacy OTHER UNSCH [facility] As Directed Meropenem 1,000 mg/ Sodium 100 mls @ 200 mls/hr 09/05/17 00:00 09/06/17 16:34 Chloride IV.SIG 100 mls/hr Q8H [facility] Administration Lactated Ringer's 1,000 mls @ 100 mls/hr 09/05/17 00:45 09/06/17 13:58 Lr 1000 Ml Inj IV.CONT Infused .Q10H [facility] Infusion Vancomycin HCl 1,750 mg/ 517.5 mls @ 250 mls/hr 09/06/17 03:00 09/06/17 05:14 Sodium Chloride IV.SIG Infused Q18H [facility] Infusion Insulin Aspart 0 unit 09/05/17 12:00 09/06/17 13:47 Novolog Insulin Correctional Sugar Inj SQ 1 unit Q6HR [facility] Administration Protocol Lactulose 30 ml 09/05/17 00:22 Lactulose Liq PO DAILY PRN SEVERE CONSITIPATION Levothyroxine Sodium 250 mcg 09/06/17 06:00 09/06/17 06:46 Synthroid PO 250 mcg DAILY@0600 [facility] Administration Magnesium Oxide 400 mg 09/06/17 11:00 09/06/17 11:00 Mag-Ox PO 400 mg DAILY@1100 [facility] Administration Miscellaneous Information 0 each 09/07/17 14:45 [facility] [place] [facility] Ordered Lab Info OTHER 09/07/17 14:46 ONCE ONE Morphine Sulfate 4 mg 09/05/17 00:22 09/06/17 16:35 Morphine Inj IV.PUSH 4 mg Q2H PRN Administration breakthrough pain Pantoprazole Sodium 40 mg 09/05/17 09:00 09/06/17 08:01 Protonix Inj IV.PUSH 40 mg DAILY [facility] Administration Pramipexole Dihydrochloride 1 mg 09/06/17 09:00 09/06/17 08:00 Mirapex PO 1 mg DAILY [facility] Administration Senna/Docusate Sodium 1 tab 09/05/17 09:00 09/06/17 08:01 Raisa-Colace PO 1 tab BID [facility] Administration Sennosides 17.2 mg 09/05/17 00:22 Senokot PO Q12H PRN Moderate Constipation Sertraline HCl 200 mg 09/06/17 09:00 09/06/17 08:00 Zoloft PO 200 mg DAILY [facility] Administration Sodium Chloride 2 ml 09/05/17 09:00 09/06/17 08:01 Ns Flush IV.FLUSH 2 ml BID [facility] Administration Sodium Chloride 2 ml 09/05/17 00:22 Ns Flush IV.FLUSH PRN PRN FLUSH AFTER USING IV ACCESS Zolpidem Tartrate 10 mg 09/05/17 19:29 09/06/17 00:05 Ambien PO 10 mg HS PRN Administration sleep Objective Remarks: Abd:soft,nt,nd [place] with clear urine. Assessment and Plan - Plan Stable s/p cysto with left JJ stent insertion F/U with Dr. Grande.
--- NOTE | 2017-09-06 18:16 | MG ---
cc: Tom Sanders MD ELECTROENCEPHALOGRAM RECORD NUMBER: [id number]. DESCRIPTION: 5-7 Hz activity, 20-60 microvolts, low amplitude in the frontal channels. Overall, good anterior and posterior gradient. Frequent myogenic artifact in the frontal channels. Occasional theta/delta bursts suggesting a drowsy state. Single lead EKG showing sinus rhythm. Produced driving with photic stimulation. INTERPRETATION: Very mild encephalopathy. Clinical correlation. MD JUJU Madrigal/EARLENE , 05:52 PM , 06:15 PM
[2017-09-07] MEDS: Chlorhexidine Gluconate 2% 1 Pack (2 Cloths) TOPICAL SCH (04:18)
[2017-09-07] MEDS: Insulin NovoLOG Aspart Correctional Sugar Inj SQ SCH ×2 (05:18→14:15)
[2017-09-07] MEDS: Levothyroxine 125 MCG Tablet PO SCH (05:19)
[2017-09-07 07:22] LABS: Baso % (Auto) 0.4 % (0.0-2.0); Eos # (Auto) 0.3 th/mm3 (0.0-0.4); Hematocrit 24.9 % (35.0-46.0); Hemoglobin 8.4 gm/dL (11.6-15.3); Lymph # (Auto) 0.9 th/mm3 (1.0-4.8); Lymph % (Auto) 16.2 % (9.0-44.0); Mean Corpuscular HGB Conc 33.8 % (32.0-36.0); Mean Corpuscular Hemoglobin 29.8 pg (27.0-34.0); Mean Corpuscular Volume 88.2 fL (80.0-100.0); Mean Platelet Volume 7.2 fL (7.0-11.0); Mono # (Auto) 0.5 th/mm3 (0.0-0.9); Mono % (Auto) 8.6 % (0.0-8.0); Neut # (Auto) 3.8 th/mm3 (1.8-7.7); Neut % (Auto) 68.8 % (16.0-70.0); Platelet Count 191 th/mm3 (150-450); Red Blood Count 2.82 mil/mm3 (4.00-5.30); Red Cell Distribution Width 15.3 % (11.6-17.2); White Blood Count 5.4 th/mm3 (4.0-11.0)
[2017-09-07 07:45] LABS: Calcium 8.5 mg/dL (8.5-10.1); Carbon Dioxide 27.5 meq/L (21.0-32.0); Potassium 3.5 meq/L (3.5-5.1)
[2017-09-07 08:26] VITALS: O2SAT 94
[2017-09-07] MEDS: Pantoprazole Inj 40 MG Vial IV.PUSH SCH (08:38)
[2017-09-07] MEDS: Sertraline 100 MG Tablet PO SCH (08:38)
[2017-09-07] MEDS: Carvedilol 12.5 MG Tablet PO SCH (08:38)
[2017-09-07] MEDS: Gabapentin 300 MG Capsule PO SCH ×2 (08:38→15:11)
[2017-09-07] MEDS: Senna/Docusate Sodium 8.6/50 MG Tablet PO SCH (08:38)
[2017-09-07] MEDS: Morphine Inj 4 MG/ML Vial IV.PUSH PRN (08:39)
--- NOTE | 2017-09-07 09:38 | P.PNIM ---
Subjective Interval history: Pt complains of continued pain requiring IV pain medication in the pelvic area which she attributes to her stents Pt still has Munguia cath in place She has been afebrile Physical Exam Vital signs: Vital Signs 09/06/17 12:00 09/06/17 20:00 09/07/17 00:00 Temperature 97.9 F 97.8 F 98.0 F Pulse Rate 77 100 H 85 Respiratory Rate 20 20 18 Blood Pressure 149/72 H 142/67 H 117/57 L Pulse Oximetry 94 L 97 95 09/07/17 08:00 Temperature 97.7 F Pulse Rate 78 Respiratory Rate 18 Blood Pressure 134/71 Pulse Oximetry 94 L Intake & Output 09/06/17 09/07/17 09/07/17 18:59 06:59 18:59 Intake Total 1265 / 1265 1350 / 1350 100 / 100 Output Total 1550 / 1550 Balance 1265 / 1265 -200 / -200 100 / 100 Intake: IV 1200 / 1200 1100 / 1100 LR 1000 mL Inj 1,000 ML @ 100 1000 / 1000 1000 / 1000 mls/hr IV.CONT .Q10H REKHA Rx#: [id number] Merrem Inj 1,000 MG In NS Inj 200 / 200 100 / 100 100 ML @ 200 mls/hr IV.SIG Q8H REKHA Rx#:[id number] Oral 65 / 65 250 / 250 Other 100 / 100 Output: Urine 750 / 750 Urine Amount (Catheter) 800 / 800 Indwelling Urethral Catheter 800 / 800 Narrative: GENERAL: NAD, AAOx3 CARDIO: Regular. CHEST: Clear to auscultation bilaterally. No wheezes, rales, or rhonchi. ABD: +BS, soft, non-tender, nondistended. Normal active bowel sounds EXT: Extremities without clubbing, cyanosis, or edema. : Munguia catheter in place - Urinary Catheter Management Indwelling Urethral Catheter Cath placed during this visit: yes Reason for continuing: Hourly intake/output Insertion date: 09/04/17 Insertion time: 23:21 Results - Labs CBC & Chem 7: 09/07/17 06:11 09/07/17 06:11 Laboratory Results - last 24 hr 09/04/17 09/06/17 09/06/17 21:55 11:42 13:42 WBC RBC Hgb Hct MCV MCH MCHC RDW Plt Count MPV Neut % (Auto) Lymph % (Auto) Barber % (Auto) Eos % (Auto) Baso % (Auto) Neut # (Auto) Lymph # (Auto) Barber # (Auto) Eos # (Auto) Baso # (Auto) WBC Differential Differential Comment Sodium Potassium Chloride Carbon Dioxide Anion Gap BUN Creatinine Estimated GFR POC Glucose 246 H 186 H Random Glucose Calcium Magnesium Urine Color Yellow Urine Clarity Cloudy H Urine pH 5.0 Ur Specific [place] 1.048 H Urine Protein 100 H Urine Glucose (UA) Negative Urine Ketones Negative Urine Occult Blood Large H Urine Nitrate Negative Urine Bilirubin Negative Urine Urobilinogen Less than 2 Ur Leukocyte Esterase Large H Urine RBC 21 H Urine WBC 104 H Urine WBC Clumps Occasional H Ur Squamous Epith Cells 1 Urine Bacteria Occasional H Hyaline Casts 2 Micro UA Comment Cath-culture ind Urine Culture Comments Cath-cult indicated 09/06/17 09/06/17 09/07/17 17:55 23:25 05:16 WBC RBC Hgb Hct MCV MCH MCHC RDW Plt Count MPV Neut % (Auto) Lymph % (Auto) Barber % (Auto) Eos % (Auto) Baso % (Auto) Neut # (Auto) Lymph # (Auto) Barber # (Auto) Eos # (Auto) Baso # (Auto) WBC Differential Differential Comment Sodium Potassium Chloride Carbon Dioxide Anion Gap BUN Creatinine Estimated GFR POC Glucose 147 H 166 H 135 H Random Glucose Calcium Magnesium Urine Color Urine Clarity Urine pH Ur Specific [place] Urine Protein Urine Glucose (UA) Urine Ketones Urine Occult Blood Urine Nitrate Urine Bilirubin Urine Urobilinogen Ur Leukocyte Esterase Urine RBC Urine WBC Urine WBC Clumps Ur Squamous Epith Cells Urine Bacteria Hyaline Casts Micro UA Comment Urine Culture Comments 09/07/17 09/07/17 06:11 06:11 WBC 5.4 RBC 2.82 L Hgb 8.4 L Hct 24.9 L MCV 88.2 MCH 29.8 MCHC 33.8 RDW 15.3 Plt Count 191 MPV 7.2 Neut % (Auto) 68.8 Lymph % (Auto) 16.2 Barber % (Auto) 8.6 H Eos % (Auto) 6.0 H Baso % (Auto) 0.4 Neut # (Auto) 3.8 Lymph # (Auto) 0.9 L Barber # (Auto) 0.5 Eos # (Auto) 0.3 Baso # (Auto) 0.0 WBC Differential . Differential Comment Auto diff final Sodium 146 H Potassium 3.5 Chloride 110 H Carbon Dioxide 27.5 Anion Gap 9 BUN 15 Creatinine 0.75 Estimated GFR 77 L POC Glucose Random Glucose 121 H Calcium 8.5 Magnesium 2.0 Urine Color Urine Clarity Urine pH Ur Specific [place] Urine Protein Urine Glucose (UA) Urine Ketones Urine Occult Blood Urine Nitrate Urine Bilirubin Urine Urobilinogen Ur Leukocyte Esterase Urine RBC Urine WBC Urine WBC Clumps Ur Squamous Epith Cells Urine Bacteria Hyaline Casts Micro UA Comment Urine Culture Comments Microbiology 09/04/17 21:55 Blood - Peripheral Aerobic Blood Culture - Preliminary No growth in 2 days 09/04/17 21:55 Blood - Peripheral Anaerobic Blood Culture - Preliminary No growth in 2 days 09/04/17 21:50 Blood - Peripheral Aerobic Blood Culture - Preliminary No growth in 2 days 09/04/17 21:50 Blood - Peripheral Anaerobic Blood Culture - Preliminary No growth in 2 days 09/04/17 21:55 Catheterized Urine Urine Culture - Preliminary gram negative rods - Imaging Head CT 09/04/17 20:49 CONCLUSION: 1. No acute findings in the brain. Report was called to the ordering ER physician Dr. Jarrett at 9:10 PM ] Head CTA 09/04/17 20:49 CONCLUSION: 1. No evidence of vessel truncation or aneurysm. Neck CTA 09/04/17 20:49 CONCLUSION: 1. Negative CTA carotids. Chest X-Ray 09/04/17 20:50 CONCLUSION: No focal infiltrates seen. Elevation of the right hemidiaphragm. Abdomen/Pelvis CT 09/05/17 00:00 CONCLUSION: 1. Nonobstructing left-sided renal calculi largest measuring 11 mm. 2. Nonspecific stranding adjacent to the left kidney. No hydronephrosis. 3. Cholelithiasis. Assessment and Plan - Assessment (1) Pyelonephritis Code(s): N12 - Tubulo-interstitial nephritis, not specified as acute or chronic Status: Acute Plan: Pyelonephritis Nephrolithiasis - Pt is a 67 y/o F with HTN, DM, fibromyalgia, and recurrent kidney stones. - Pt was admitted to [facility] through the ER d/t AMS, urosepsis, and obstructing left ureteral stone. - Pt follows with Urology, Dr. Grande. Pt has had prior lithotripsy. - Pt began having left flank pain about 2 weeks ago. Pt scheduled for laser fragmentation on 09/02/17 but her states the procedure was postponed because of pyuria. She had been told to take preoperative antibiotics but had not started them when she was supposed to. She was told to continue abx. On Pt developed more severe L flank pain so she presented to [facility] where CT scan demonstrated mild left hydronephrosis, 13 mm obstructing calculus at left UPJ. She was afebrile. Pt received Rocephin? and was discharged from the ER. While eating dinner with her on 09/05, pt developed shaking with arms in flexion and though did not appear to completely lose consciousness, she was minimally responsive. - Pt was brought to the ED on 09/05 for evaluation for possible CVA. Pt was initially admitted to the [facility] - CT Head, CTA brain and carotids were negative. - Pt was evaluated by Neurology and felt NOT to have had a CVA. NO TPA was given - Urology evaluated - CT Abd/pelvis (09/05/17): 1. Nonobstructing left-sided renal calculi largest measuring 11 mm. 2. Nonspecific stranding adjacent to the left kidney. No hydronephrosis. 3. Cholelithiasis. - Pt underwent cystoscopy with left retrograde pyelogram and left double J- stent insertion performed by Dr. Breezy Maddox on 09/05/17 - blood Cx (09/04) --> NGTD - Urine Cx (09/04) --> gram negative rods - Pt was started on Meropenem and Vancomycin at admission, will likely adjust once Urine Cx results have been finalized - Pt still with Munguia in place - Pain control PRN - DVT prophylaxis with SCDs - supportive care - anticipate d/c in 2-3 days. HTN - continue Coreg 25mg BID DM2 - SSI - Accu checks Fibromyalgia - Pt is normally on [place] 10/325mg TID, Gabapentin 300mg TID Hypothyroidism - Cont. home meds The exam, history, and the medical decision-making described in the above note were completed with the assistance of the mid-level provider. I reviewed and agree with the findings presented. I attest that I had a [id number] encounter with the patient on the same day, and personally performed and documented my assessment and findings in the medical record.
[2017-09-07] MEDS: Magnesium Oxide 400 MG Tablet PO SCH (11:53)
[2017-09-07 13:14] VITALS: BP 106/88; PULSE 71; RESP 19; TEMP 98.2
[2017-09-07] MEDS ORDERED: Pharmacy Ordered Lab Info OTHER ONE (14:45)
[2017-09-07] MEDS ORDERED: Furosemide 40 MG Tablet PO ONE (15:00)
[2017-09-07] MEDS: Vancomycin Inj 1,750 MG in Sodium Chlor 0.9% Inj 500 ML IV.SIG SCH (16:09)
--- NOTE | 2017-09-12 15:54 | P.DS ---
Date of admission: 09/05/17 00:17 Primary care physician: No Primary Care Physician Attending physician on discharge: Carlos Johnson Anticipated date of discharge: 09/07/17 Brief History from admission: 67-year-old female with past medical history of hypertension, diabetes , fibromyalgia, recurrent kidney stones status post prior lithotripsy by Dr. Grande. She began having left flank pain about 2 weeks ago. She followed up with Dr. Grande and had CT demonstrating 13 mm left stone. She was scheduled for laser fragmentation on 09/02/17 but her states the procedure was postponed because of pyuria. She had been told to take preoperative antibiotics but she had not started them when she was supposed to. She was told to continue abx. On 09/04 13:30 she developed more severe L flank pain so she presented to [facility] where CT scan demonstrated mild left hydronephrosis, 13 mm obstructing calculus at left UPJ. She was afebrile. White blood cell count was 8.7. BUN and creatinine were 16 and 0.79 respectively. Lactic acid 1.5. Urinalysis showed 2+ leukocyte esterase, 5 white blood cells, 9 RBCs, 4+ bacteria, nitrite negative. She received a dose of antibiotics which sounds like it was Rocephin. She then went to eat dinner with her in [place] and was sitting up in a montalvo when she began shaking with arms in flexion and though did not appear to completely lose consciousness, she was minimally responsive. She was also lethargic and not able to provide significant history on arrival. Stroke alert was called and she had CT brain that was negative. CTA brain and carotids were negative. ED physician discussed with neurologist who indicated she is not a TPA candidate but should be admitted to [facility]. Now she is much more responsive and it is apparent she has no focal deficit. She is febrile to 102.3. White blood cell count is 11.9. Catheterized urine specimen consistent with UTI. Creatinine 1.19. DS: Diagnosis - Discharge Diagnosis (1) Pyelonephritis Status: Acute (2) Hydronephrosis with renal calculous obstruction Status: Acute (3) Acute UTI Status: Acute (4) Toxic metabolic encephalopathy Status: Acute DS: Summary Hospital Course: Pyelonephritis Nephrolithiasis - Pt is a 67 y/o F with HTN, DM, fibromyalgia, and recurrent kidney stones. Pt was admitted to [facility] through the ER d/t AMS, urosepsis, and obstructing left ureteral stone. Pt follows with Urology, Dr. Grande. Pt has had prior lithotripsy. Pt began having left flank pain about 2 weeks ago. Pt scheduled for laser fragmentation on 09/02/17 but her states the procedure was postponed because of pyuria. She had been told to take preoperative antibiotics but had not started them when she was supposed to. She was told to continue abx. On 09/04 Pt developed more severe L flank pain so she presented to [facility] where CT scan demonstrated mild left hydronephrosis, 13 mm obstructing calculus at left UPJ. She was afebrile. Pt received Rocephin? and was discharged from the ER. While eating dinner with her on 09/05, pt developed shaking with arms in flexion and though did not appear to completely lose consciousness, she was minimally responsive. Pt was brought to the ED on 09/05 for evaluation for possible CVA. Pt was initially admitted to the [facility]. CT Head, CTA brain and carotids were negative. Pt was evaluated by Neurology and felt NOT to have had a CVA. NO TPA was given. Urology evaluated Pt had CT Abd/pelvis (09/05/17): 1. Nonobstructing left-sided renal calculi largest measuring 11 mm. 2. Nonspecific stranding adjacent to the left kidney. No hydronephrosis. 3. Cholelithiasis. Pt underwent cystoscopy with left retrograde pyelogram and left double J-stent insertion performed by Dr. Breezy Maddox on 09/05/17. Blood Cx (09/04) --> NGTD. Urine Cx (09/04) -->Klebsiella pneumoniae. Pt was started on Meropenem and Vancomycin at admission which were continued until final cultures resulted and sensitivities reviewed. Pt was discharged on Cipro 500mg po BID x 5 more days. She is to followup with Dr. Chaney within 1 week for re-evaluation and scheduling of any further procedures/SWOL. Pt is to followup with her PCP, Dr. Nagel, in 1 week HTN - continue Coreg 25mg BID DM2 - Cont. home meds at discharge. Fibromyalgia - Pt is normally on [place] 10/325mg TID, Gabapentin 300mg TID Hypothyroidism - Cont. home meds ADDENDUM: When d/c summary was written her discharge plan in the computer was reviewed and did not indicate that the pt was discharged on any medications when in fact she was discharged on Cipro 500mg po BID x 5 days. I was able to find in the Discharge Packet information that the pt did receive a prescription for this. Her outpt records were reviewed and the pt had followup with Dr. Nagel, her PCP, and pt was noted to have been continued in Cipro by Dr. Chaney until her ureteroscopy which is scheduled on 09/30/17. - Time Spent with Patient Total time spent providing and/or coordinating discharge services: - Quality: Stroke Last date observed well: 09/04/17 Last time observed well: 19:30 Symptom Onset Unknown: Yes Results Procedures completed during hospitalization: See summary above - Impressions ITS Impressions Head CT 09/04/17 20:49 CONCLUSION: 1. No acute findings in the brain. Report was called to the ordering ER physician Dr. Jarrett at 9:10 PM ] Head CTA 09/04/17 20:49 CONCLUSION: 1. No evidence of vessel truncation or aneurysm. Neck CTA 09/04/17 20:49 CONCLUSION: 1. Negative CTA carotids. Chest X-Ray 09/04/17 20:50 CONCLUSION: No focal infiltrates seen. Elevation of the right hemidiaphragm. Abdomen/Pelvis CT 09/05/17 00:00 CONCLUSION: 1. Nonobstructing left-sided renal calculi largest measuring 11 mm. 2. Nonspecific stranding adjacent to the left kidney. No hydronephrosis. 3. Cholelithiasis. Discharge Plan - Discharge Disposition Patient Disposition: 01 Discharge Home - Discharge Condition Condition: Stable - Discharge Order Discharge Orders: Discharge Order (Routine); Ordered 09/07/17 Ordered By: Chayo Payne - Discharge Details Anticipated Discharge Date: 09/07/17 - Physicians Team Primary Care Provider: Primary Care Sydneei,No Attending Provider: Reece Cali Other Providers: Elo Law MD ; Breezy Maddox DO ; Reece Cali, DO
== END 2017-09-07 16:21 | disposition home or self-care (01) ==
LOC: NEPC 20:44 → NEDA 09-05 00:17 → N03 09-05 15:44 → N07 09-06 14:09
PROVIDERS: ADMIT Hospitalist; ATTEND Hospitalist